=== PATIENT | female | born 1985 | race Caucasian/White ===

== ENCOUNTER 2016-08-28 10:51 | Emergency (ER) | payer OTHER ==
[~2016-08-28] VITALS: Ht 157.5 cm; Wt 60.0 kg
[~2016-08-28 10:51] MED LIST: ABIL5TAB6 PO; LEVE500 PO; SERT-129 PO
[2016-08-28 10:55] VITALS: BP 105/59; PULSE 72; RESP 20; TEMP 98.5; O2SAT 98
--- NOTE | 2016-08-28 11:15 | PD ---
HPI Chief Complaint: Seizure Time Seen by Provider: 11:15 Travel History International Travel<30 days: No Contact w/Intl Traveler<30days: No Traveled to known affect area: No History of Present Illness HPI 31-year-old female with a history of seizure disorder, bipolar disorder and anxiety presents to the emergency department for evaluation of possible seizure. The patient was at our pharmacy here in [place] and states it she began to feel lightheaded and weak as though she was "about to have a seizure." States that people around her put her in a wheelchair and brought her down to the emergency department. She states that she did not actually have a seizure. States that she has been out of her Keppra for the past 4 days because she is unable to afford it due to financial difficulties. She denies any fever, chills , nausea, vomiting, numbness or tingling, headache, chest pain, shortness of breath, abdominal pain, cough or cold symptoms. Unsure of last menstrual period. Admits to using crack cocaine last week. Denies any other drug use. Denies alcohol use. No other complaints. PFSH Past Medical History Hx Anticoagulant Therapy: No Anemia: Yes Arthritis: No Asthma: Yes Autoimmune Disease: No Blood Disorders: Yes (HX OF BLEEDING ULCER) Bipolar Disorder: Yes Anxiety: Yes (PANIC ATTACKS) Depression: Yes Heart Rhythm Problems: No Cancer: No Cardiovascular Problems: No High Cholesterol: No Chemotherapy: No Chest Pain: No Congestive Heart Failure: No COPD: No Cerebrovascular Accident: No Diabetes: No Diminished Hearing: No Endocrine: No Gastrointestinal Disorders: Yes (HX OF HYPEREMESIS ) GERD: Yes Glaucoma: No Genitourinary: Yes (KIDNEY STONES) Headaches: Yes Hepatitis: No Hiatal Hernia: No Hypertension: No Immune Disorder: No Implanted Vascular Access Dvce: Yes Kidney Stones: Yes Musculoskeletal: No Neurologic: Yes (SEIZURE DISORDER) Psychiatric: Yes (BIPOLAR, PTSD, MULTIPLE PERSONALITY DISORDER) Reproductive: No Respiratory: No Immunizations Current: Yes Migraines: Yes Myocardial Infarction: No Radiation Therapy: No Renal Failure: No Seizures: Yes Sickle Cell Disease: No Sleep Apnea: No Thyroid Disease: No Ulcer: Yes Tetanus Vaccination: < 5 Years PNEUMOCCOCAL Vaccine (Year): 3 ?: Not Menopausal: No : 11 Para: 4 Miscarriage: 7 : 0 Past Surgical History Abdominal Surgery: No AICD: No Body Medical Devices: VNS UPPER LEFT CHEST Cardiac Surgery: No Section: Yes (X 3) Ear Surgery: No Endocrine Surgery: No Eye Surgery: No Genitourinary Surgery: No Gynecologic Surgery: Yes () Hysterectomy: No Neurologic Surgery: No Oral Surgery: No Pacemaker: No Thoracic Surgery: Yes (VAGUS NERVE STIMULATOR IMPLANTATION 2000) Other Surgery: Yes (C-SECTIONS, VAGUS NERVE STIMULATOR PLACED) Social History Alcohol Use: No Tobacco Use: No Substance Use: Yes (hx of crack ) Allergies-Medications (Allergen,Severity, Reaction): Coded Allergies: Adhesives (Verified Allergy, Severe, PEELS HER SKIN, 08/28/16) Cephalosporins (Verified Allergy, Severe, A CHILD, 08/28/16) Ciprofloxacin (Verified Allergy, Severe, CANNOT BREATH, 08/28/16) Ibuprofen (Verified Allergy, Severe, STOPS BREATHING, 08/28/16) Keflex (Verified Allergy, Severe, Hives, 08/28/16) Morphine (Verified Allergy, Severe, swelling, 08/28/16) Penicillin (Verified Allergy, Severe, STOPS BREATHING, 08/28/16) Sulfa (Verified Allergy, Severe, STOPS BREATHING, 08/28/16) Vancomycin (Verified Allergy, Severe, Anaphylaxis, 08/28/16) Reported Meds & Prescriptions Reported Meds & Active Scripts Active Keppra (Levetiracetam) 500 Mg Tab 1,500 Mg PO Q12HR 30 Days Review of Systems Except as stated in HPI: all other systems reviewed are Neg Physical Exam Narrative GENERAL: Well-nourished and well-developed female patient in no acute distress. SKIN: Warm and dry. HEAD: Normocephalic and atraumatic. EYES: No injection, drainage, or hyphema noted. PERRLA. EOMI. ENT: No nasal drainage noted. Oropharynx is clear. NECK: Supple and the trachea is midline. CARDIOVASCULAR: Regular rate and rhythm. RESPIRATORY: Breath sounds are equal bilaterally with no accessory muscle use, wheezing, rhonchi, or crackles. GASTROINTESTINAL: Abdomen is soft, non-tender, and nondistended. MUSCULOSKELETAL: No obvious deformities, swelling, cyanosis, or ecchymosis is present throughout the upper and lower extremities. Patient has full range of motion without any signs of neurovascular compromise. Strength 5/5 upper and lower extremities and equal bilaterally. NEUROLOGICAL: Awake, alert, and oriented. Normal speech and gait. Cranial nerves are grossly intact. Data Data Last Documented VS Vital Signs Date Time Temp Pulse Resp B/P Pulse Ox O2 Delivery O2 Flow Rate FiO2 08/28/16 10:55 98.5 72 20 105/59 98 Orders Complete Blood Count With Diff (08/28/16 11:12) Alcohol (Ethanol) (08/28/16 11:12) Drug Screen, Random Urine (08/28/16 11:12) Electrocardiogram (08/28/16 ) Ecg Monitoring (08/28/16 11:12) Oximetry (08/28/16 11:12) Comprehensive Metabolic Panel (08/28/16 11:12) Ed Urine Pregnancytest Poc (08/28/16 11:12) Levetiracetam (Keppra) (08/28/16 11:30) Lorazepam Inj (Ativan Inj) (08/28/16 12:00) Lorazepam Inj (Ativan Inj) (08/28/16 11:49) Labs Laboratory Tests Test 08/28/16 11:15 White Blood Count 7.2 TH/MM3 Red Blood Count 4.39 MIL/MM3 Hemoglobin 14.1 GM/DL Hematocrit 42.0 % Mean Corpuscular Volume 95.6 FL Mean Corpuscular Hemoglobin 32.2 PG Mean Corpuscular Hemoglobin 33.7 % Concent Red Cell Distribution Width 12.4 % Platelet Count 195 TH/MM3 Mean Platelet Volume 9.8 FL Neutrophils (%) (Auto) 68.9 % Lymphocytes (%) (Auto) 19.1 % Monocytes (%) (Auto) 7.9 % Eosinophils (%) (Auto) 2.9 % Basophils (%) (Auto) 1.2 % Neutrophils # (Auto) 4.9 TH/MM3 Lymphocytes # (Auto) 1.4 TH/MM3 Monocytes # (Auto) 0.6 TH/MM3 Eosinophils # (Auto) 0.2 TH/MM3 Basophils # (Auto) 0.1 TH/MM3 CBC Comment DIFF FINAL Differential Comment Sodium Level 140 MEQ/L Potassium Level 4.1 MEQ/L Chloride Level 109 MEQ/L Carbon Dioxide Level 23.9 MEQ/L Anion Gap 7 MEQ/L Blood Urea Nitrogen 8 MG/DL Creatinine 0.84 MG/DL Estimat Glomerular Filtration 80 ML/MIN Rate Random Glucose 57 MG/DL Calcium Level 8.6 MG/DL Total Bilirubin 0.6 MG/DL Aspartate Amino Transf 14 U/L (AST/SGOT) Alanine Aminotransferase 21 U/L (ALT/SGPT) Alkaline Phosphatase 63 U/L Total Protein 7.2 GM/DL Albumin 3.9 GM/DL Ethyl Alcohol Level LESS THAN 3 MG/DL [facility] Medical Decision Making Medical Screen Exam Complete: Yes Emergency Medical Condition: Yes Differential Diagnosis Medication refill versus seizure disorder versus medication noncompliance Narrative Course 31-year-old female with a history of seizure disorder presents to the emergency department for evaluation of aura like symptoms of seizure. Patient is afebrile , vital signs are stable. Physical examination is unremarkable. No focal neurologic deficits. Patient has been to our facility multiple times for same complaint, she does not take her Keppra as prescribed because she reports she cannot afford the medication. Labs have been drawn and sent. She is given Keppra 1500 mg orally which is her regular dose of Keppra. CBC is unremarkable. CMP is unremarkable. ETOH less than 3. ED urine test is negative. Patient did have 1 witnessed seizure/pseudo seizure in the emergency department lasting approximately 30 seconds. She was given Ativan 2mg IM. She was not post ictal after the event. She has remained stable since then and without complaint. Her brought down her prescription for Keppra from the pharmacy so she has these medications to take at home. This is seizure disorder with medication noncompliance. Stressed the importance of taking her seizure medication as prescribed. Patient verbalizes understanding. Stable for discharge. I discussed the case with my attending physician Dr. Paul who is aware of the patients history, physical examination findings, and treatment plan. Diagnosis Primary Impression: Seizures Additional Impression: Medical non-compliance Referrals: Neurologist Patient Instructions: General Instructions, Recurrent Seizures in Adults (ED) Additional Instructions: Take your Keppra as prescribed. Follow-up with your Primary Care Physician or neurologist. Return to the ED for any acute worsening of symptoms. Med/Other Pt SpecificInfo: No Change to Meds Disposition: 01 DISCHARGE HOME Condition: Stable Tawana Weiner Aug 28, 2016 11:15
[2016-08-28] MEDS ORDERED: levETIRAcetam 500 MG TAB PO ONE (11:30)
[2016-08-28 11:36] LABS: AUTOMATED NEUTROPHIL # 4.9 TH/MM3 (1.8-7.7); BASOPHIL # 0.1 TH/MM3 (0-0.2); BASOPHIL % 1.2 % (0.0-2.0); EOSINOPHIL # 0.2 TH/MM3 (0-0.4); EOSINOPHIL % 2.9 % (0.0-4.0); HEMO FLAGS DIFF FINAL; LYMPH % 19.1 % (9.0-44.0); LYMPHOCYTE # 1.4 TH/MM3 (1.0-4.8); MEAN CELL VOLUME 95.6 FL (80.0-100.0); MEAN CORPUSCULAR HEMOGLOBIN 32.2 PG (27.0-34.0); MEAN CORPUSCULAR HGB CONC 33.7 % (32.0-36.0); MONO % 7.9 % (0.0-8.0); NEUT % 68.9 % (16.0-70.0); PLATELET COUNT 195 TH/MM3 (150-450); RED BLOOD COUNT 4.39 MIL/MM3 (4.00-5.30); RED CELL DISTRIBUTION WIDTH 12.4 % (11.6-17.2); WHITE BLOOD COUNT 7.2 TH/MM3 (4.0-11.0)
[2016-08-28] MEDS ORDERED: LORazepam 2 MG/ML VIAL ONE (11:49)
[2016-08-28 11:52] LABS: ALT (GPT) 21 U/L (10-53); ANION GAP 7 MEQ/L (5-15); AST (GOT) 14 U/L (15-37); BICARBONATE 23.9 MEQ/L (21.0-32.0); BLOOD UREA NITROGEN 8 MG/DL (7-18); CHLORIDE 109 MEQ/L (98-107); GLOMERULAR FILTRATION RATE 80 ML/MIN (>89); POTASSIUM 4.1 MEQ/L (3.5-5.1); SODIUM (NA) 140 MEQ/L (136-145)
[2016-08-28 11:54] LABS: ALKALINE PHOSPHATASE 63 U/L (45-117); TOTAL BILIRUBIN ADULT 0.6 MG/DL (0.2-1.0)
[2016-08-28] MEDS ORDERED: LORazepam 2 MG/ML VIAL IM ONE (12:00)
[2016-08-28 12:33] LABS: AMPHETAMINE, URINE NEG (NEG); BARBITURATES, URINE NEG (NEG); COCAINE, URINE POS (NEG)
[2016-08-28 12:51] VITALS: O2SAT 99
[2016-09-26] MEDS ORDERED: LEVE500 PO (17:04)
== END 2016-08-28 12:52 | disposition home or self-care (01) ==
LOC: NEPC 10:51
DX: R56.9 Unspecified convulsions (principal); J45.909 Unspecified asthma, uncomplicated; Z91.14 Patient's other noncompliance with medication regimen
CPT/HCPCS: 80053; 80307; 80320; 84703; 85025; 96372; 99284; J2060

== ENCOUNTER 2017-07-08 13:08 | Observation (INO) | payer OTHER ==
[~2017-07-08] VITALS: Ht 160 cm; Wt 57.0 kg
[2017-07-08 05:25] VITALS: PULSE 75
[~2017-07-08 13:08] MED LIST changes: -ABIL5TAB6 PO; -SERT-129 PO
[2017-07-08 13:25] VITALS: BP 98/63; PULSE 82; RESP 20; TEMP 98; O2SAT 99
--- NOTE | 2017-07-08 14:21 | PD ---
HPI Chief Complaint: Psychiatric Symptoms Time Seen by Provider: 14:03 Travel History International Travel<30 days: No Contact w/Intl Traveler<30days: No Traveled to known affect area: No History of Present Illness HPI 32-year-old female presents to the ED under [place] for evaluation of intentional overdose. Per [place] paper work the EMS called because made by [facility] employee Tim Carrasco. He advised that the patient was at home with friends who observed her purposely taking various pills including extra strength Tylenol 10-20, 500 mg of Keppra 3, cyclobenzaprine 8. The patient stated to the responding officer that "she did not want to fucking live anymore and leave her the fuck alone." She was initially combative when taken into custody. She stated that she was upset and wants to because her this past Friday from cancer. Patient admits to using meth. On arrival the patient is somnolent but arouses easily to voice. She answers questions intermittently. She is alert to person place and time. She denies any somatic complaints. She refuses to answer when asked if she is suicidal. She states "I just want to be left alone." She endorses risk of , states last menstrual period "a while ago." PFSH Past Medical History Hx Anticoagulant Therapy: No Anemia: Yes Arthritis: No Asthma: Yes Autoimmune Disease: No Blood Disorders: Yes (HX OF BLEEDING ULCER) Bipolar Disorder: Yes Anxiety: Yes (PANIC ATTACKS) Depression: Yes Heart Rhythm Problems: No Cancer: No Cardiovascular Problems: No High Cholesterol: No Chemotherapy: No Chest Pain: No Congestive Heart Failure: No COPD: No Cerebrovascular Accident: No Diabetes: No Diminished Hearing: No Endocrine: No Gastrointestinal Disorders: Yes (HX OF HYPEREMESIS ) GERD: Yes Glaucoma: No Genitourinary: Yes (KIDNEY STONES) Headaches: Yes Hepatitis: No Hiatal Hernia: No Hypertension: No Immune Disorder: No Implanted Vascular Access Dvce: Yes Kidney Stones: Yes Musculoskeletal: No Neurologic: Yes (SEIZURE DISORDER) Psychiatric: Yes (BIPOLAR, PTSD, MULTIPLE PERSONALITY DISORDER) Reproductive: No Respiratory: No Immunizations Current: Yes Migraines: Yes Myocardial Infarction: No Radiation Therapy: No Renal Failure: No Seizures: Yes Sickle Cell Disease: No Sleep Apnea: No Thyroid Disease: No Ulcer: Yes Tetanus Vaccination: < 5 Years PNEUMOCCOCAL Vaccine (Year): 3 ?: Not Menopausal: No : 11 Para: 4 Miscarriage: 7 : 0 Past Surgical History Abdominal Surgery: No AICD: No Body Medical Devices: VNS UPPER LEFT CHEST Cardiac Surgery: No Section: Yes (X 3) Ear Surgery: No Endocrine Surgery: No Eye Surgery: No Genitourinary Surgery: No Gynecologic Surgery: Yes () Hysterectomy: No Insulin Pump: No Neurologic Surgery: No Oral Surgery: No Pacemaker: No Thoracic Surgery: Yes (VAGUS NERVE STIMULATOR IMPLANTATION 2000) Other Surgery: Yes (C-SECTIONS, VAGUS NERVE STIMULATOR PLACED) Social History Alcohol Use: No Tobacco Use: No Substance Use: Yes (hx of crack ) Allergies-Medications (Allergen,Severity, Reaction): Coded Allergies: Sulfa (Sulfonamide Antibiotics) (Unverified Allergy, Severe, STOPS BREATHING, 07/08/17) adhesive (Unverified Allergy, Severe, PEELS HER SKIN, 07/08/17) cefepime (Unverified Allergy, Severe, A CHILD, 07/08/17) ceftaroline fosamil (Unverified Allergy, Severe, A CHILD, 07/08/17) cephalexin (Unverified Allergy, Severe, Hives, 07/08/17) ciprofloxacin (Unverified Allergy, Severe, CANNOT BREATH, 07/08/17) ibuprofen (Unverified Allergy, Severe, STOPS BREATHING, 07/08/17) morphine (Unverified Allergy, Severe, swelling, 07/08/17) penicillin G (Unverified Allergy, Severe, STOPS BREATHING, 07/08/17) vancomycin (Unverified Allergy, Severe, Anaphylaxis, 07/08/17) Reported Meds & Prescriptions Reported Meds & Active Scripts Active Keppra (Levetiracetam) 500 Mg Tab 1,500 Mg PO Q12HR 30 Days Review of Systems ROS Limitations: Uncooperative Except as stated in HPI: all other systems reviewed are Neg Physical Exam Exam Limitations: Uncooperative Narrative GENERAL: Well-nourished, well-developed white female in no acute distress. SKIN: Focused skin assessment warm/dry. Tattoos noted HEAD: Normocephalic. EYES: No scleral icterus. No injection or drainage. NECK: Supple, trachea midline. No JVD or lymphadenopathy. CARDIOVASCULAR: Regular rate and rhythm without murmurs, gallops, or rubs. RESPIRATORY: Breath sounds clear and equal bilaterally. No accessory muscle use. GASTROINTESTINAL: Abdomen soft, non-tender, nondistended. MUSCULOSKELETAL: No cyanosis, or edema. BACK: Nontender without obvious deformity. No CVA tenderness. Data Data Last Documented VS Vital Signs Date Time Temp Pulse Resp B/P (MAP) Pulse Ox O2 Delivery O2 Flow Rate FiO2 07/08/17 19:15 70 14 96/61 (73) 100 Room Air 07/08/17 13:25 98.0 Orders Orders Complete Blood Count With Diff (07/08/17 13:59) Comprehensive Metabolic Panel (07/08/17 13:59) Psych Screen (07/08/17 13:59) Drug Screen, Random Urine (07/08/17 13:59) Urinalysis - C+S If Indicated (07/08/17 13:59) Ed Urine Pregnancytest Poc (07/08/17 13:59) Alcohol (Ethanol) (07/08/17 13:59) Tylenol (Acetaminophen) (07/08/17 13:59) Salicylates (Aspirin) (07/08/17 13:59) Electrocardiogram (07/08/17 ) Call Poison Control (07/08/17 14:23) Levetiracetam (07/08/17 15:04) Sodium Chlor 0.9% 1000 Ml Inj (Ns 1000 M (07/08/17 15:30) Tylenol (Acetaminophen) (07/08/17 16:04) Acetylcysteine Inj (Acetadote Inj) (07/08/17 20:00) Acetylcysteine Inj (Acetadote Inj) (07/08/17 21:00) Acetylcysteine Inj (Acetadote Inj) (07/09/17 01:00) Admit Order (Ed Use Only) (07/08/17 20:05) Labs Laboratory Tests Test 07/08/17 13:59 07/08/17 14:00 07/08/17 18:15 Salicylates Level LESS THAN 1.7 MG/DL White Blood Count 5.8 TH/MM3 Red Blood Count 4.37 MIL/MM3 Hemoglobin 14.3 GM/DL Hematocrit 42.5 % Mean Corpuscular Volume 97.4 FL Mean Corpuscular Hemoglobin 32.8 PG Mean Corpuscular Hemoglobin Concent 33.7 % Red Cell Distribution Width 13.1 % Platelet Count 287 TH/MM3 Mean Platelet Volume 9.1 FL Neutrophils (%) (Auto) 53.5 % Lymphocytes (%) (Auto) 27.3 % Monocytes (%) (Auto) 13.8 % Eosinophils (%) (Auto) 4.3 % Basophils (%) (Auto) 1.1 % Neutrophils # (Auto) 3.1 TH/MM3 Lymphocytes # (Auto) 1.6 TH/MM3 Monocytes # (Auto) 0.8 TH/MM3 Eosinophils # (Auto) 0.2 TH/MM3 Basophils # (Auto) 0.1 TH/MM3 CBC Comment DIFF FINAL Differential Comment Blood Urea Nitrogen 14 MG/DL Creatinine 0.82 MG/DL Random Glucose 82 MG/DL Total Protein 7.6 GM/DL Albumin 3.8 GM/DL Calcium Level 8.4 MG/DL Alkaline Phosphatase 81 U/L Aspartate Amino Transf (AST/SGOT) 44 U/L Alanine Aminotransferase (ALT/SGPT) 43 U/L Total Bilirubin 0.5 MG/DL Sodium Level 140 MEQ/L Potassium Level 4.2 MEQ/L Chloride Level 106 MEQ/L Carbon Dioxide Level 26.8 MEQ/L Anion Gap 7 MEQ/L Estimat Glomerular Filtration Rate 81 ML/MIN Acetaminophen Level 82.4 MCG/ML Ethyl Alcohol Level 3 MG/DL MDM Medical Decision Making Medical Screen Exam Complete: Yes Emergency Medical Condition: Yes Differential Diagnosis Intentional overdose versus metabolic derangement versus Tylenol toxicity versus Adjustment disorder versus anxiety versus bipolar versus depression versus dementia versus electrolyte disorder versus malingering versus mood disorder versus ODD versus psychosis versus PTSD versus schizophrenia versus schizoaffective disorder versus substance-induced mood disorder versus other Narrative Course 32-year-old female presents to the ED under [place] act for evaluation of intentional overdose. Per [place] paper work the patient was at home with friends who observed her purposely taking various pills including extra strength Tylenol 10-20, 500 mg of Keppra 3, cyclobenzaprine 8. This occurred at approximately 12:15 PM. The patient stated to the responding officer that "she did not want to fucking live anymore and leave her the fuck alone." She was initially combative when taken into custody. She stated that she wants to because her this past Friday from cancer. Admits to using meth. On arrival the patient is somnolent but arouses easily to voice. She answers questions intermittently. She is oriented to person, place and time. She denies any somatic complaints. She refuses to answer when asked if she is suicidal. She states "I just want to be left alone." Vitals reviewed. Patient's hypotensive on presentation. Physical exam is limited due to the patient's noncooperation, but unremarkable. IV was established. Patient was administered 1 L normal saline IV. Call placed to poison control. See nurse's note for those details. ED urine test negative. CBC and CMP without concerning abnormalities. Acetaminophen level 34.4 initially. Acetaminophen level 84.2 at 1634. Acetadote ordered according to protocol. Keppra level pending. Psychiatric evaluation pending. The patient will be admitted to the medicine service for serial acetaminophen levels. I spoke with Dr. Leon who agrees to accept the patient to the medicine service. Please see medicine and psychiatric notes for disposition. Ivory Hernandes Jul 08, 2017 14:21
[2017-07-08 14:59] LABS: AUTOMATED NEUTROPHIL # 3.1 TH/MM3 (1.8-7.7); BASOPHIL # 0.1 TH/MM3 (0-0.2); BASOPHIL % 1.1 % (0.0-2.0); EOSINOPHIL # 0.2 TH/MM3 (0-0.4); EOSINOPHIL % 4.3 % (0.0-4.0); HEMATOCRIT 42.5 % (35.0-46.0); HEMO FLAGS DIFF FINAL; LYMPH % 27.3 % (9.0-44.0); LYMPHOCYTE # 1.6 TH/MM3 (1.0-4.8); MEAN CELL VOLUME 97.4 FL (80.0-100.0); MEAN CORPUSCULAR HEMOGLOBIN 32.8 PG (27.0-34.0); MEAN CORPUSCULAR HGB CONC 33.7 % (32.0-36.0); MONO % 13.8 % (0.0-8.0); NEUT % 53.5 % (16.0-70.0); PLATELET COUNT 287 TH/MM3 (150-450); RED BLOOD COUNT 4.37 MIL/MM3 (4.00-5.30); RED CELL DISTRIBUTION WIDTH 13.1 % (11.6-17.2); WHITE BLOOD COUNT 5.8 TH/MM3 (4.0-11.0)
[2017-07-08 15:16] LABS: ACETAMINOPHEN 34.4 MCG/ML (10.0-30.0); ALKALINE PHOSPHATASE 81 U/L (45-117); TOTAL BILIRUBIN ADULT 0.5 MG/DL (0.2-1.0)
[2017-07-08] MEDS ORDERED: SODIUM CHLOR 0.9% 1000 ML INJ 1,000 ML IV ONE (15:30)
[2017-07-08 17:55] LABS: ALT (GPT) 43 U/L (10-53)
[2017-07-08 18:00] LABS: ANION GAP 7 MEQ/L (5-15); AST (GOT) 44 U/L (15-37); BICARBONATE 26.8 MEQ/L (21.0-32.0); CHLORIDE 106 MEQ/L (98-107); GLOMERULAR FILTRATION RATE 81 ML/MIN (>89); SODIUM (NA) 140 MEQ/L (136-145)
[2017-07-08 18:03] LABS: ALCOHOL 3 MG/DL (0-5); BLOOD UREA NITROGEN 14 MG/DL (7-18); POTASSIUM 4.2 MEQ/L (3.5-5.1)
[2017-07-08 19:15] VITALS: BP 96/61; PULSE 70; RESP 14; O2SAT 100
[2017-07-08] MEDS ORDERED: ACETYLCYSTEINE IV ONE ×4 (20:00→21:00)
[2017-07-08] MEDS ORDERED: DEXTROSE 5% IV ONE ×4 (20:00→21:00)
[2017-07-08] MEDS ORDERED: WATER IV ONE ×2 (20:00)
[2017-07-08] MEDS ORDERED: SODIUM CHLORIDE 0.9% FLUSH 10 ML FLUSH IV FLUSH PRN (20:30)
[2017-07-08] MEDS ORDERED: NALOXONE HCL 0.4 MG/ML AMP IV PUSH PRN (20:30)
[2017-07-08] MEDS ORDERED: WATE IV ONE ×2 (21:00)
--- NOTE | 2017-07-08 21:36 | EKG ---
Date Performed: 07/08/2017 Time Performed: 14:16:40 PTAGE: 32 years EKG: Sinus rhythm WITH SHORT TX INTERVAL BORDERLINE ECG PREVIOUS TRACING : 07/08/2016 09.12 Compared to prior tracing no significant change DOCTOR: Librado Herbert Interpretating Date/Time 07/08/2017 21:36:06
[2017-07-08 22:05] VITALS: BP 108/69; PULSE 86; RESP 18; TEMP 98.2; O2SAT 100
[2017-07-08] MEDS: SODIUM CHLORIDE 0.9% FLUSH 10 ML FLUSH IV FLUSH SCH (22:37)
[2017-07-08] MEDS: SODIUM CHLOR 0.9% 1000 ML INJ 1,000 ML IV SCH (22:38)
[2017-07-08 23:46] VITALS: BP 132/64; PULSE 85; RESP 19; TEMP 98.3; O2SAT 100
[2017-07-09] VITALS (7 sets, daily range): BP systolic 88–107; BP diastolic 54–62; PULSE 67–88; RESP 16–17; TEMP 98–98.2; O2SAT 98–99
--- NOTE | 2017-07-09 00:09 | HHI.HP ---
[facility] Service [facility] Primary Care Physician No Primary Care Physician Admission Diagnosis intentional Tylenol overdose Diagnoses: Travel History International Travel<30 Days: No Contact w/Intl Traveler <30 Da: No Traveled to Known Affected Are: No History of Present Illness 32-year-old female brought to the emergency department under [place] act for evaluation of intentional overdose. EMS was called by [facility] employee Tim Carrasco who was informed that the patient was at home with friends who observed her purposely taking various pills including approximately 10-20 extra strength Tylenol, 500 mg Keppra 3 and Flexeril 8. During our interview , the patient is uncooperative and hostile. She repeatedly tells me to "leave her alone." She responds that she wanted to because her just . She will not answer when I asked her what medication she took at home earlier today. She does admit to having a seizure disorder and states she gets her Keppra from [facility], she does not have a neurologist. She also states that her last seizure was last night, unwitnessed. The patient has had many hospitalizations for seizures often after running out of medication. The patient also admits to smoking meth, last use 2 days ago. Review of Systems Unable to obtain as patient was uncooperative Past Family Social History Past Medical History Seizure disorder (Remainder obtained from medical records) PTSD Anxiety Asthma Past Surgical History Vital nerve stimulator Reported Medications Reported Meds & Active Scripts Active Keppra (Levetiracetam) 500 Mg Tab 1,500 Mg PO Q12HR 30 Days Allergies: Coded Allergies: Sulfa (Sulfonamide Antibiotics) (Unverified Allergy, Severe, STOPS BREATHING, 07/08/17) adhesive (Unverified Allergy, Severe, PEELS HER SKIN, 07/08/17) cefepime (Unverified Allergy, Severe, A CHILD, 07/08/17) ceftaroline fosamil (Unverified Allergy, Severe, A CHILD, 07/08/17) cephalexin (Unverified Allergy, Severe, Hives, 07/08/17) ciprofloxacin (Unverified Allergy, Severe, CANNOT BREATH, 07/08/17) ibuprofen (Unverified Allergy, Severe, STOPS BREATHING, 07/08/17) morphine (Unverified Allergy, Severe, swelling, 07/08/17) penicillin G (Unverified Allergy, Severe, STOPS BREATHING, 07/08/17) vancomycin (Unverified Allergy, Severe, Anaphylaxis, 07/08/17) Family History Patient refused to answer Social History Denies tobacco and alcohol. Admits to smoking methamphetamine as recently as 2 days ago. Physical Exam Vital Signs Vital Signs Date Time Temp Pulse Resp B/P (MAP) Pulse Ox O2 Delivery O2 Flow Rate FiO2 07/08/17 23:46 98.3 85 19 132/64 (86) 100 07/08/17 22:05 98.2 86 18 108/69 (82) 100 07/08/17 21:45 07/08/17 19:15 70 14 96/61 (73) 100 Room Air 07/08/17 13:25 98.0 82 20 98/63 (75) 99 Physical Exam GENERAL: female lying in SKIN: No rashes, ecchymoses or lesions. Cool and dry. HEAD: Atraumatic. Normocephalic. No temporal or scalp tenderness. EYES: Pupils equal round and reactive. Extraocular motions intact. No scleral icterus. No injection or drainage. ENT: Nose without bleeding, purulent drainage or septal hematoma. Airway patent. Poor dentition. NECK: Trachea midline. No JVD or lymphadenopathy. Supple, nontender, no meningeal signs. CARDIOVASCULAR: Regular rate and rhythm without murmurs, gallops, or rubs. RESPIRATORY: Clear to auscultation. Breath sounds equal bilaterally. No wheezes , rales, or rhonchi. GASTROINTESTINAL: Abdomen soft, non-tender, nondistended. No hepato-splenomegaly , or palpable masses. No guarding. MUSCULOSKELETAL: Extremities without clubbing, cyanosis, or edema. No joint tenderness, effusion, or edema noted. NEUROLOGICAL: Awake and alert. Cranial nerves II through XII intact. Motor and sensory grossly within normal limits. Normal speech. Laboratory Laboratory Tests Test 07/08/17 13:59 07/08/17 14:00 07/08/17 18:15 Salicylates Level LESS THAN 1.7 White Blood Count 5.8 Red Blood Count 4.37 Hemoglobin 14.3 Hematocrit 42.5 Mean Corpuscular Volume 97.4 Mean Corpuscular Hemoglobin 32.8 Mean Corpuscular Hemoglobin Concent 33.7 Red Cell Distribution Width 13.1 Platelet Count 287 Mean Platelet Volume 9.1 Neutrophils (%) (Auto) 53.5 Lymphocytes (%) (Auto) 27.3 Monocytes (%) (Auto) 13.8 Eosinophils (%) (Auto) 4.3 Basophils (%) (Auto) 1.1 Neutrophils # (Auto) 3.1 Lymphocytes # (Auto) 1.6 Monocytes # (Auto) 0.8 Eosinophils # (Auto) 0.2 Basophils # (Auto) 0.1 CBC Comment DIFF FINAL Differential Comment Blood Urea Nitrogen 14 Creatinine 0.82 Random Glucose 82 Total Protein 7.6 Albumin 3.8 Calcium Level 8.4 Alkaline Phosphatase 81 Aspartate Amino Transf (AST/SGOT) 44 Alanine Aminotransferase (ALT/SGPT) 43 Total Bilirubin 0.5 Sodium Level 140 Potassium Level 4.2 Chloride Level 106 Carbon Dioxide Level 26.8 Anion Gap 7 Estimat Glomerular Filtration Rate 81 Acetaminophen Level 82.4 Ethyl Alcohol Level 3 Result Diagram: 07/08/17 1400 07/08/17 1400 Caprini VTE Risk Assessment Caprini VTE Risk Assessment: No/Low Risk (score <= 1) Caprini Risk Assessment Model Point Value = 1 Point Value = 2 Point Value = 3 Point Value = 5 Age 41-60 Minor surgery BMI > 25 kg/m2 Swollen legs Varicose veins or History of unexplained or recurrent spontaneous Oral contraceptives or hormone replacement Sepsis (< 1 month) Serious lung disease, including pneumonia (< 1 month) Abnormal pulmonary function Acute myocardial infarction Congestive heart failure (< 1 month) History of inflammatory bowel disease Medical patient at bed rest Age 61-74 Arthroscopic surgery Major open surgery (> 45 min) Laparoscopic surgery (> 45 min) Malignancy Confined to bed (> 72 hours) Immobilizing plaster cast Central venous access Age >= 75 History of VTE Family history of VTE Factor V Leiden Prothrombin [id number] Lupus anticoagulant Anticardiolipin antibodies Elevated serum homocysteine Heparin-induced thrombocytopenia Other congenital or acquired thrombophilia Stroke (< 1 month) Elective arthroplasty Hip, pelvis, or leg fracture Acute spinal cord injury (< 1 month) Prophylaxis Regimen Total Risk Factor Score Risk Level Prophylaxis Regimen 0-1 Low Early ambulation 2 Moderate Order ONE of the following: *Sequential Compression Device (SCD) *Heparin 5000 units SQ BID 3-4 Higher Order ONE of the following medications: *Heparin 5000 units SQ TID *Enoxaparin/Lovenox 40 mg SQ daily (WT < 150 kg, CrCl > 30 mL/min) *Enoxaparin/Lovenox 30 mg SQ daily (WT < 150 kg, CrCl > 10-29 mL/min) *Enoxaparin/Lovenox 30 mg SQ BID (WT < 150 kg, CrCl > 30 mL/min) AND/OR *Sequential Compression Device (SCD) 5 or more Highest Order ONE of the following medications: *Heparin 5000 units SQ TID (Preferred with Epidurals) *Enoxaparin/Lovenox 40 mg SQ daily (WT < 150 kg, CrCl > 30 mL/min) *Enoxaparin/Lovenox 30 mg SQ daily (WT < 150 kg, CrCl > 10-29 mL/min) *Enoxaparin/Lovenox 30 mg SQ BID (WT < 150 kg, CrCl > 30 mL/min) AND *Sequential Compression Device (SCD) Assessment and Plan Assessment and Plan 32-year-old female with a past medical history significant for seizure disorder presents under [employer] act for intentional overdose. 1. Intentional overdose Patient took unspecified amount of Tylenol, Flexeril and Keppra Acetaminophen level 82.4, poison control contacted and N-acetylcysteine initiated per protocol Trend LFTs Keppra level pending Patient under [place] act [place] Psychiatry consulted, appreciate recommendations 2. Seizure disorder Patient reports seizure last night EEG pending Neurology consulted, appreciate assistance Seizure precautions Ativan prn seizures FEN Regular diet NS at 100 cc/hr Monitor electrolytes Miguelina Leon MD Jul 09, 2017 00:09
[2017-07-09] MEDS ORDERED: LORazepam 2 MG/ML VIAL IV PUSH PRN (00:30)
[2017-07-09] MEDS ORDERED: WATE IV ONE ×2 (01:00)
[2017-07-09] MEDS ORDERED: DEXTROSE 5% IV ONE ×2 (01:00)
[2017-07-09] MEDS ORDERED: ACETYLCYSTEINE IV ONE ×2 (01:00)
[2017-07-09] MEDS: SODIUM CHLOR 0.9% 1000 ML INJ 1,000 ML IV SCH ×2 (06:25→13:54)
[2017-07-09 06:56] LABS: BACTERIA, URINE RARE /hpf; BLOOD, URINE NEG (NEG); COMMENT (UR) CULT NOT INDICATED; CULTURE IF INDICATED CULT NOT INDICATED; GLUCOSE,URINE NEG (NEG); KETONE, URINE 40 mg/dL (NEG); MUCUS URINE FEW /lpf (OCC); NITRITE,URINE NEG (NEG); PH, URINE 6.5 (5.0-8.5); SQUAMOUS EPITHELIAL CELL URINE 23 /hpf (0-5); URINE COLOR YELLOW (YELLW/STRAW)
[2017-07-09] MEDS: SODIUM CHLORIDE 0.9% FLUSH 10 ML FLUSH IV FLUSH SCH (09:00)
[2017-07-09] MEDS ORDERED: ONDANSETRON HCL 4 MG/2 ML VIAL IVP PRN (09:30)
[2017-07-09] MEDS ORDERED: SENNOSIDES 8.6 MG TAB PO PRN (09:30)
[2017-07-09] MEDS ORDERED: LACTULOSE SYRUP 20 GM/30 ML CUP PO PRN (09:30)
[2017-07-09] MEDS ORDERED: BISACODYL 10 MG SUPP RECTAL PRN (09:30)
[2017-07-09] MEDS ORDERED: MAGNESIUM HYDROXIDE SUSP 30 ML CUP PO PRN (09:30)
[2017-07-09] MEDS ORDERED: NALOXONE HCL 0.4 MG/ML AMP IV PUSH PRN (09:30)
--- NOTE | 2017-07-09 10:38 | PD.PSY.CON ---
Provisional Diagnosis Admission Date Jul 08, 2017 at 20:07 [place] I. Adjustment disorder with depressed mood vs major depressive disorder History of Present Illness Service Psychiatry Consult Requested By ER team Reason for Consult Suicidal attempt by overdose Primary Care Physician No Primary Care Physician HPI The patient is a 32-year-old woman, with no psychiatric history, he doesn't have any documented psychiatric history here at [facility], medical history of seizures, who was brought to the emergency department under [place] act for evaluation of intentional overdose. EMS was called by [facility] employee Tim Carrasco who was informed that the patient was at home with friends who observed her purposely taking various pills including approximately 10-20 extra strength Tylenol, 500 mg Keppra 3 and Flexeril 8. During our interview, the patient is uncooperative and hostile. She repeatedly tells me to "leave her alone." She responds that she wanted to because her just . She will not answer when I asked her what medication she took at home earlier today. She does admit to having a seizure disorder and states she gets her Keppra from [facility], she does not have a neurologist. She also states that her last seizure was last night, unwitnessed. The patient has had many hospitalizations for seizures often after running out of medication. The patient also admits to smoking meth, last use 2 days ago. In spite of multiple redirections, the patient does not want to cooperate for the psychiatric evaluation. There is not telephone numbers of family or friend listed in the electronic record. Review of Systems ROS Limitations: Uncooperative Past Family Social History Coded Allergies: Sulfa (Sulfonamide Antibiotics) (Unverified Allergy, Severe, STOPS BREATHING, 07/08/17) adhesive (Unverified Allergy, Severe, PEELS HER SKIN, 07/08/17) cefepime (Unverified Allergy, Severe, A CHILD, 07/08/17) ceftaroline fosamil (Unverified Allergy, Severe, A CHILD, 07/08/17) cephalexin (Unverified Allergy, Severe, Hives, 07/08/17) ciprofloxacin (Unverified Allergy, Severe, CANNOT BREATH, 07/08/17) ibuprofen (Unverified Allergy, Severe, STOPS BREATHING, 07/08/17) morphine (Unverified Allergy, Severe, swelling, 07/08/17) penicillin G (Unverified Allergy, Severe, STOPS BREATHING, 07/08/17) vancomycin (Unverified Allergy, Severe, Anaphylaxis, 07/08/17) Active Scripts Levetiracetam (Keppra) 500 Mg Tab, 1500 MG PO Q12HR for seizure for 30 Days, TAB 1 Refill Prov:Jessy Negro MD 09/26/16 Current Medications Medications (Trade) Dose Ordered Sig/Markus Route Start Time Stop Time Status Last Admin Acetylcysteine 5700 mg/Dextrose 1,028.5 ml @ 62.5 mls/ hr ONCE ONCE IV 07/09/17 01:00 07/09/17 17:27 07/09/17 01:00 Sodium Chloride 1,000 ml @ 100 mls/hr Q10H IV 07/08/17 20:26 07/09/17 06:25 (NS Flush) 2 ml UNSCH PRN IV FLUSH 07/08/17 20:30 (NS Flush) 2 ml BID IV FLUSH 07/08/17 21:00 07/08/17 22:37 (Ativan Inj) 2 mg Q10M PRN IV PUSH 07/09/17 00:30 (Zofran Inj) 4 mg Q6H PRN IVP 07/09/17 09:30 (Narcan Inj) 0.4 mg UNSCH PRN IV PUSH 07/09/17 09:30 (Ninoska-Colace) 1 tab BID PO 07/09/17 21:00 (Milk Of Magnesia Liq) 30 ml Q12H PRN PO 07/09/17 09:30 (Senokot) 17.2 mg Q12H PRN PO 07/09/17 09:30 (Dulcolax Supp) 10 mg DAILY PRN RECTAL 07/09/17 09:30 (Lactulose Liq) 30 ml DAILY PRN PO 07/09/17 09:30 Physical Exam Vital Signs Vital Signs Date Time Temp Pulse Resp B/P (MAP) Pulse Ox O2 Delivery O2 Flow Rate FiO2 07/09/17 09:46 97/56 (70) 99 07/09/17 08:14 98.0 79 16 07/08/17 19:15 Room Air Lab Results Test 07/08/17 13:59 07/08/17 14:00 07/09/17 06:00 07/09/17 06:15 Salicylates Level LESS THAN 1.7 MG/DL White Blood Count 5.8 TH/MM3 Red Blood Count 4.37 MIL/MM3 Hemoglobin 14.3 GM/DL Hematocrit 42.5 % Mean Corpuscular Volume 97.4 FL Mean Corpuscular Hemoglobin 32.8 PG Mean Corpuscular Hemoglobin Concent 33.7 % Red Cell Distribution Width 13.1 % Platelet Count 287 TH/MM3 Mean Platelet Volume 9.1 FL Neutrophils (%) (Auto) 53.5 % Lymphocytes (%) (Auto) 27.3 % Monocytes (%) (Auto) 13.8 % Eosinophils (%) (Auto) 4.3 % Basophils (%) (Auto) 1.1 % Neutrophils # (Auto) 3.1 TH/MM3 Lymphocytes # (Auto) 1.6 TH/MM3 Monocytes # (Auto) 0.8 TH/MM3 Eosinophils # (Auto) 0.2 TH/MM3 Basophils # (Auto) 0.1 TH/MM3 CBC Comment DIFF FINAL Differential Comment Blood Urea Nitrogen 14 MG/DL Creatinine 0.82 MG/DL Random Glucose 82 MG/DL Total Protein 7.6 GM/DL Albumin 3.8 GM/DL Calcium Level 8.4 MG/DL Alkaline Phosphatase 81 U/L Aspartate Amino Transf (AST/SGOT) 44 U/L Alanine Aminotransferase (ALT/SGPT) 43 U/L Total Bilirubin 0.5 MG/DL Sodium Level 140 MEQ/L Potassium Level 4.2 MEQ/L Chloride Level 106 MEQ/L Carbon Dioxide Level 26.8 MEQ/L Anion Gap 7 MEQ/L Estimat Glomerular Filtration Rate 81 ML/MIN Acetaminophen Level 82.4 MCG/ML Ethyl Alcohol Level 3 MG/DL Urine Color YELLOW Urine Turbidity HAZY Urine pH 6.5 Urine Specific [place] 1.038 Urine Protein 30 mg/dL Urine Glucose (UA) NEG mg/dL Urine Ketones 40 mg/dL Urine Occult Blood NEG Urine Nitrite NEG Urine Bilirubin NEG Urine Urobilinogen LESS THAN 2.0 MG/DL Urine Leukocyte Esterase MOD Urine RBC 4 /hpf Urine WBC 7 /hpf Urine Squamous Epithelial Cells 23 /hpf Urine Bacteria RARE /hpf Urine Mucus FEW /lpf Microscopic Urinalysis Comment CULT NOT INDICATED Urine Opiates Screen NEG Urine Barbiturates Screen NEG Urine Amphetamines Screen POS Urine Benzodiazepines Screen NEG Urine Cocaine Screen NEG Urine Cannabinoids Screen NEG Mental Status Examination Appearance: Appropriate, Disheveled Consciousness: Alert Mental Status Exam Remarks Mental status is limited due to the lack of cooperation Assessment & Plan Problem List: (1) Adjustment disorder with mixed anxiety and depressed mood ICD Codes: F43.23 - Adjustment disorder with mixed anxiety and depressed mood Assessment & Plan: On psychiatric evaluation the patient is oppositional, resistant, non-cooperative, refuses to answer my questions. He has been persistently verbally hostile and abuses with nurses and staff. Patient has a documented suicide attempt by overdosing with multiple psychotropics. No collateral information available at this moment. Patient is definitely a threat to herself and seems to be very dysregulated and needs psychiatric admission for stabilization and safety. Transfer to psychiatry once medically appropriate. Continue sitter in the ER for safety. Assessment & Plan Estimated LOS: days Gavino Castillo MD Jul 09, 2017 10:38
--- NOTE | 2017-07-09 10:59 | MB ---
cc: JEOVANY LIVE M.D. DATE OF CONSULTATION 07/09/2017 REASON FOR CONSULTATION This is a 32-year-old woman seen in neurological consultation in regards to altered mentation and seizure. HISTORY OF PRESENT ILLNESS The patient was brought to the hospital under a [place] ACT with a history of intentional overdose taking different pills including Tylenol, Keppra, cyclobenzaprine. I noted that the ER evaluation also observed the foul language that I observed. Apparently there is a use of some meth and the drug screen was positive for amphetamines. She may have a vagus nerve stimulator apparently implanted in 2000. There is a history of seizures. History of multiple allergies, see H&P. PHYSICAL EXAM Exam was very limited. She had her eyes closed, responded occasionally to simple questions such as her age. She started following commands gripping and then suddenly said the following "my is dying, live me fucking alone" and essentially wanted me to leave her alone. She turned in bed and continued to maintain the eyes closed and covered herself completely. At that point, I left her alone. LABORATORY DATA Laboratory data was noted. The patient had a CT brain last evening which was normal. CBC was unremarkable. Chemistry, slightly elevated AST and slightly low calcium otherwise normal. Toxicology positive for acetaminophen and amphetamines. ASSESSMENT Overdose. History of seizures apparently on Keppra and apparently has VNS. Neurologic josé, I tried to follow her and when she is more cooperative to see if she will participate in the exam. Otherwise, medical and psychiatric care. Thank you for asking us to assist in her care. MD SADIA Johnston/CHRISTIAN /10:44 AM /10:53 AM
[2017-07-09 14:23] LABS: AUTOMATED NEUTROPHIL # 2.6 TH/MM3 (1.8-7.7); BASOPHIL # 0.1 TH/MM3 (0-0.2); EOSINOPHIL # 0.2 TH/MM3 (0-0.4); EOSINOPHIL % 4.1 % (0.0-4.0); HEMATOCRIT 36.7 % (35.0-46.0); HEMO FLAGS DIFF FINAL; LYMPH % 31.8 % (9.0-44.0); LYMPHOCYTE # 1.6 TH/MM3 (1.0-4.8); MEAN CELL VOLUME 96.9 FL (80.0-100.0); MEAN CORPUSCULAR HEMOGLOBIN 32.7 PG (27.0-34.0); MEAN CORPUSCULAR HGB CONC 33.7 % (32.0-36.0); MONO % 12.3 % (0.0-8.0); NEUT % 50.8 % (16.0-70.0); PLATELET COUNT 240 TH/MM3 (150-450); RED BLOOD COUNT 3.79 MIL/MM3 (4.00-5.30); RED CELL DISTRIBUTION WIDTH 12.7 % (11.6-17.2); WHITE BLOOD COUNT 5.2 TH/MM3 (4.0-11.0)
[2017-07-09 14:56] LABS: ACETAMINOPHEN LESS THAN 2.0 MCG/ML (10.0-30.0); ALKALINE PHOSPHATASE 61 U/L (45-117); ALT (GPT) 33 U/L (10-53); ANION GAP 9 MEQ/L (5-15); AST (GOT) 32 U/L (15-37); BETA HCG QUANT LESS THAN 1 MIU/ML (0-5); BICARBONATE 23.5 MEQ/L (21.0-32.0); BLOOD UREA NITROGEN 7 MG/DL (7-18); CHLORIDE 110 MEQ/L (98-107); GLOMERULAR FILTRATION RATE 138 ML/MIN (>89); POTASSIUM 4.7 MEQ/L (3.5-5.1); SODIUM (NA) 142 MEQ/L (136-145); TOTAL BILIRUBIN ADULT 0.3 MG/DL (0.2-1.0)
--- NOTE | 2017-07-09 16:22 | HHI.DCPOC ---
Discharge Care Plan Diagnosis: (1) Adjustment disorder with mixed anxiety and depressed mood Goals to Promote Your Health * To prevent worsening of your condition and complications * To maintain your health at the optimal level Directions to Meet Your Goals Take your medications as prescribed Follow your dietary instruction Follow activity as directed Keep your appointments as scheduled Take your immunizations and boosters as scheduled If your symptoms worsen call your PCP, if no PCP go to Urgent Care Center or Emergency Room Smoking is Dangerous to Your Health. Avoid second hand smoke Call the 24-hour hour crisis hotline for domestic abuse at Celina Menjivar Jul 09, 2017 16:22
[2017-07-09] MEDS ORDERED: LEVE500 PO (16:24)
--- NOTE | 2017-07-09 16:24 | HHI.PR ---
Subjective Remarks Follow-up Tylenol level. Patient has no complaints denies nausea and abdominal pain. Discussed with RN Objective Vitals Vital Signs Date Time Temp Pulse Resp B/P (MAP) Pulse Ox O2 Delivery O2 Flow Rate FiO2 07/09/17 09:46 97/56 (70) 99 07/09/17 08:14 98.0 79 16 88/54 (65) 98 07/09/17 04:20 98.2 67 17 107/62 (77) 99 07/08/17 23:46 98.3 85 19 132/64 (86) 100 07/08/17 22:05 98.2 86 18 108/69 (82) 100 07/08/17 21:45 07/08/17 19:15 70 14 96/61 (73) 100 Room Air I/O 07/08/17 07/08/17 07/08/17 07/09/17 07/09/17 07/09/17 07:00 15:00 23:00 07:00 15:00 23:00 Intake Total 1242.775 ml Balance 1242.775 ml Intake IV Total 1242.775 ml # Voids 1 Result Diagram: 07/09/17 1405 07/09/17 1405 Objective Remarks GENERAL: female lying in SKIN: No rashes, ecchymoses or lesions. Cool and dry. CARDIOVASCULAR: Regular rate and rhythm without murmurs, gallops, or rubs. RESPIRATORY: Clear to auscultation. Breath sounds equal bilaterally. No wheezes , rales, or rhonchi. GASTROINTESTINAL: Abdomen soft, non-tender, nondistended. No guarding. MUSCULOSKELETAL: Extremities without clubbing, cyanosis, or edema. No joint tenderness, effusion, or edema noted. NEUROLOGICAL: Awake and alert. Cranial nerves II through XII intact. Motor and sensory grossly within normal limits. Normal speech. Procedures None A/P Problem List: (1) Drug overdose ICD Code: T50.901A - Poisoning by unspecified drugs, medicaments and biological substances, accidental (unintentional), initial encounter Assessment and Plan 32-year-old female with a past medical history significant for seizure disorder presents under [place] act for intentional overdose. 1. Intentional overdose Patient took unspecified amount of Tylenol, Flexeril and Keppra Acetaminophen level 82.4, poison control contacted and N-acetylcysteine initiated per protocol Trend LFTs. Repeat LFTs in the normal limits and Tylenol level negligible, discontinue Mucomyst Keppra level pending Patient under [place] act [place] Psychiatry consulted, appreciate recommendations. Patient will be transferred to psychiatry for as she is medically cleared and stable 2. Seizure disorder Patient reports seizure last night EEG pending Neurology consulted, appreciate assistance Seizure precautions Ativan prn seizures FEN Regular diet NS at 100 cc/hr, will discontinue tolerating diet Monitor electrolytes Discharge Planning Discharge patient to psychiatry Condition on discharge: Improved Regular Diet as tolerated Ad Ifeoma activity no driving Rx written: May resume Keppra in the morning pending review of Keppra level Follow-up with primary care physician Neftali Hamm MD Jul 09, 2017 16:23
[2017-07-09] MEDS ORDERED: DOCUSATE SODIUM 50 MG/SENNA 8.6 MG TAB PO SCH (21:00)
== END 2017-07-09 18:06 ==
LOC: NEPC 13:08 → NEDA 20:07 → NEPGCP 22:01
PROVIDERS: ADMIT Internal Medicine; ATTEND Internal Medicine
DX: T39.1X2A Poisoning by 4-Aminophenol derivatives, intentional self-harm, initial encounter (principal); T48.1X2A Poisoning by skeletal muscle relaxants [neuromuscular blocking agents], intentional self-harm, initial encounter; T42.6X2A Poisoning by other antiepileptic and sedative-hypnotic drugs, intentional self-harm, initial encounter; R40.0 Somnolence; I95.9 Hypotension, unspecified; G40.909 Epilepsy, unspecified, not intractable, without status epilepticus; F15.90 Other stimulant use, unspecified, uncomplicated; J45.909 Unspecified asthma, uncomplicated; F43.10 Post-traumatic stress disorder, unspecified; F43.23 Adjustment disorder with mixed anxiety and depressed mood; F31.9 Bipolar disorder, unspecified; F44.81 Dissociative identity disorder; Z79.899 Other long term (current) drug therapy
CPT/HCPCS: 80053; 80177; 80307; 81001; 84702; 84703; 85025; 93005; 96361; 96365; 96366; 99285; G0378; J0132; J7030; J7060; J7070; 85610

== ENCOUNTER 2017-07-09 16:21 | Inpatient (IN) | payer OTHER ==
[~2017-07-09] VITALS: Ht 160 cm; Wt 59.8 kg
[2017-07-09 16:15] VITALS: BP 103/66; PULSE 86; RESP 18; TEMP 98.5; O2SAT 98
[2017-07-09] MEDS ORDERED: LEVE500 PO (16:24)
[2017-07-10 08:42] LABS: ANION GAP 7 MEQ/L (5-15); BICARBONATE 28.3 MEQ/L (21.0-32.0); BLOOD UREA NITROGEN 8 MG/DL (7-18); CHLORIDE 106 MEQ/L (98-107); GLOMERULAR FILTRATION RATE 106 ML/MIN (>89); SODIUM (NA) 141 MEQ/L (136-145)
[2017-07-10 08:43] LABS: HDL CHOLESTEROL 59.5 MG/DL (40.0-60.0); LDL CHOLESTEROL 52 MG/DL (0-99)
[2017-07-10] MEDS ORDERED: ALUMINUM/MAGNESIUM/SIMETH 30 ML CUP PO PRN (10:00)
[2017-07-10] MEDS ORDERED: hydrOXYzine HCL 50 MG TAB PO PRN (10:00)
[2017-07-10] MEDS ORDERED: MAGNESIUM HYDROXIDE SUSP 30 ML CUP PO PRN (10:00)
--- NOTE | 2017-07-10 10:19 | HHI.HP ---
Provisional Diagnosis Admission Date Jul 09, 2017 at 18:05 [place] I. 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 Express and informed consent means consent voluntarily given in writing, by a competent person, after sufficient explanation and disclosure of the subject matter involved to enable the person to make a knowing and willful decision without any element of force, fraud, deceit, duress, or other form of constraint or coercion. This person is 18 years of age or older, is not now known to be incompetent to consent to treatment with a guardian advocate, and does not have a health care surrogate or proxy currently making medical treatment decisions. I have found this person to be one of the following: [] Competent to provide express and informed consent, as defined above, for voluntary admission to this facility and is competent to provide express and informed consent for treatment. He/she has the consistent capacity to make well reasoned, willful, and knowing decisions concerning his or her medical or mental health treatment. The person fully and consistently understands the purpose of the admission for examination/placement and is fully capable of personally exercising all rights assured [place] [] Incompetent to provide express and informed consent to voluntary admission, and this is incompetent to provide express and informed consent to treatment. The person must be transferred to involuntary status and a petition for a guardian advocate filed with the Circuit Court. [xxx] Refusing to provide express and informed consent to voluntary admission but is competent to provide express and informed consent for treatment. The person must be discharged or transferred to involuntary status. Form shall be completed within 24 hours of a person's arrival at the receiving facility and filed in the clinical record of each person: 1. Admitted on a voluntary basis 2. Permitted to provide express and informed consent to his/her own treatment 3. Allowed to transfer from involuntary to voluntary status 4. Prior to permitting a person to consent to his or her own treatment after having been previously found incompetent to consent to treatment. History of Present Illness Capacity: Lacks Capacity (patient lacks capacity to sign for admission, patient has capacity sign of medication) Psych Chief Complaint: suicide attempt with multiple drug overdose HPI Patient is a 32-year-old white female initially admitted to the hospital on under [place] act by the [place] [employer] dated 07/08/17 at 1224 hrs. it document reviewed essentially stating called in by [facility] employee Tim smith [phone] he advised Nahed was at home with friends who observed her purposely taking various pills to include approximately 10-20 pills extra strength Tylenol, 500 mg Flexeril, approximately 3-500 mg cyclobenzaprine approximately 8 pills. Upon arrival I make contact with Rachna and asked her why she took many pills, Rachna responded angrily because she did not want to fucking live anymore and to leave her the fuck alone. Mandeep friend was on the scene and did observe her to take said pill. Rachna became slightly combative when she was being taken into custody but eventually stopped. Care is upset and wants to because her this past Friday from cancer. Rachna is also a meth user but it is unknown when the last time she used area and patient was initially admitted to the medical service under visit [phone] due to the toxic Tylenol levels that occurred with the overdose. Her urine toxicology was also positive for amphetamines. Patient medically cleared on the medical floor on the 07/09. Patient was seen on 07/[address] Gavino Barlow patient was quite oppositional angry irritable quite profane and assaultive towards him. However he felt she continued to meet criteria recommended transfer to this unit when medically clear. Patient was medically cleared transferred to this unit. Patient seen by me today with RN and medical student rosales. Patient's EMR reviewed patient' s had multiple contacts with this hospital since 2008. She has had multiple positive urine toxicology his for cocaine and cocaine metabolites. Though the most recent urine toxicology was only positive for amphetamines. Patient was seen in her room angry irritable quite profane using the "F" word multiple times when asked about that use she said I have freedom of speech. She reiterated her grief at the of her within the past week or so. She acknowledged being with friends who are using methamphetamine and a "smoke- filled" room. In attempting to discuss her past substance abuse issues he became angry or and more oppositional. When asked about a continues suicidality she refused to answer working at me again. Patient is states she's been [place] acted multiple times in the past and the only reason why I'm doing this today so that I can make money off of her. Patient was unable contract for safety. Patient was also seen by neurology on her medical admission. Her behavior was the same with Dr. clementsa was unable to do a full examination of her oppositionality. Denies any event at this time patient does meet criteria for further stay under the [place] act I'll do first opinion request second opinion. I feel she does have capacity to site of her medications. Continue her Keppra 1500 mg twice a day. We will order Her blood level for tomorrow morning. Patient states that she is plan to [facility] [place] act and that some clinician at their facilities diagnosed with bipolar disorder and posttraumatic stress disorder multiple personality disorder. I question the veracity of those diagnoses considering the strong substance abuse she has documented our EMR. Review of Systems Constitutional: DENIES: Diaphoretic episodes, Fatigue, Fever, Weight gain, Weight loss, Chills, Dizziness, Change in appetite, Night Sweats Endocrine: DENIES: Abnorml menstrual pattern, Heat/cold intolerance, Polydipsia , Polyuria, Polyphagia Eyes: DENIES: Blurred vision, Diplopia, Eye inflammation, Eye pain, Vision loss , Photosensitivity, Double Vision Ears, nose, mouth, throat: DENIES: Tinnitus, Hearing loss, Vertigo, Nasal discharge, Oral lesions, Throat pain, Hoarseness, Ear Pain, Running Nose, Epistaxis, Sinus Pain, Toothache, Odynophagia Respiratory: DENIES: Apneas, Cough, Snoring, Wheezing, Hemoptysis, Sputum production, Shortness of breath Cardiovascular: DENIES: Chest pain, Palpitations, Syncope, Dyspnea on Exertion , PND, Lower Extremity Edema, Orthopnea, Claudication Gastrointestinal: DENIES: Abdominal pain, Black stools, Bloody stools, Constipation, Diarrhea, Nausea, Vomiting, Difficulty Swallowing, Anorexia Genitourinary: DENIES: Abnormal vaginal bleeding, Dysmenorrhea, Dyspareunia, Sexual dysfunction, Urinary frequency, Urinary incontinence, Urgency, Hematuria , Dysuria, Nocturia, Vaginal discharge Musculoskeletal: DENIES: Joint pain, Muscle aches, Stiffness, Joint Swelling, Back pain, Neck pain Integumentary: DENIES: Abnormal pigmentation, Pruritus, Rash, Nail changes, Breast masses, Breast skin changes, Nipple discharge Hematologic/lymphatic: DENIES: Bruising, Lymphadenopathy Immunologic/allergic: DENIES: Eczema, Urticaria Neurologic: DENIES: Abnormal gait, Headache, Localized weakness, Paresthesias, Seizures, Speech Problems, Tremor, Poor Balance Psychiatric: COMPLAINS OF: Depression, Agitation, Homicidal Ideation Past Psych History Psychological trauma history Patient willing to discuss any details Violence risk - others (6 mos) Patient unwilling to discuss Violence risk - self (6 mos) Patient suicide attempt 07/08 Substance Abuse History Drugs/Alcohol past 12 months Patient active methamphetamine abuser strong history of cocaine abuse Past Family Social History Coded Allergies: Sulfa (Sulfonamide Antibiotics) (Unverified Allergy, Severe, STOPS BREATHING, 07/08/17) adhesive (Unverified Allergy, Severe, PEELS HER SKIN, 07/08/17) cefepime (Unverified Allergy, Severe, A CHILD, 07/08/17) ceftaroline fosamil (Unverified Allergy, Severe, A CHILD, 07/08/17) cephalexin (Unverified Allergy, Severe, Hives, 07/08/17) ciprofloxacin (Unverified Allergy, Severe, CANNOT BREATH, 07/08/17) ibuprofen (Unverified Allergy, Severe, STOPS BREATHING, 07/08/17) morphine (Unverified Allergy, Severe, swelling, 07/08/17) penicillin G (Unverified Allergy, Severe, STOPS BREATHING, 07/08/17) vancomycin (Unverified Allergy, Severe, Anaphylaxis, 07/08/17) Active Scripts Levetiracetam (Keppra) 500 Mg Tab, 1500 MG PO Q12HR for seizure for 30 Days, # 60 TAB 1 Refill Prov:Celina Menjivar 07/09/17 Current Medications Medications (Trade) Dose Ordered Sig/Markus Route Start Time Stop Time Status Last Admin (Benadryl) 50 mg HS PRN PO 07/10/17 10:00 UNV (Tylenol) 650 mg Q4H PRN PO 07/10/17 10:00 UNV (Milk Of Magnesia Liq) 30 ml DAILY PRN PO 07/10/17 10:00 UNV (Mag-Al Plus Susp Liq) 30 ml Q6H PRN PO 07/10/17 10:00 UNV (Habitrol 21 Mg Patch.24 Hr) 1 patch DAILY T-DERMAL 07/11/17 09:00 UNV (Atarax) 50 mg Q6H PRN PO 07/10/17 10:00 UNV (Keppra) 1,500 mg Q12HR PO 07/10/17 10:00 UNV Family Psych History Patient unwilling to discuss Social History It appears patient's about a week ago Patient's Strengths (min. 2) Patient verbal irritable [facility] Physical Exam Patient seen screened in ED exam reviewed and agreed with. Patient pacing in the room angry agitated quite irritable and profane. Though she is in no acute distress. No respiratory distress. No complaints of abdominal pain. Patient moving all 4 extremities without difficulty. No abnormal motor movements noted Vital Signs Vital Signs Date Time Temp Pulse Resp B/P (MAP) Pulse Ox O2 Delivery O2 Flow Rate FiO2 07/09/17 16:15 98.5 86 18 103/66 (78) 98 Lab Results Test 07/10/17 07:21 Blood Urea Nitrogen 8 MG/DL Creatinine 0.65 MG/DL Random Glucose 75 MG/DL Calcium Level 8.4 MG/DL Sodium Level 141 MEQ/L Potassium Level 4.0 MEQ/L Chloride Level 106 MEQ/L Carbon Dioxide Level 28.3 MEQ/L Anion Gap 7 MEQ/L Estimat Glomerular Filtration Rate 106 ML/MIN Triglycerides Level 80 MG/DL Cholesterol Level 127 MG/DL LDL Cholesterol 52 MG/DL HDL Cholesterol 59.5 MG/DL Cholesterol/HDL Ratio 2.13 RATIO Mental Status Examination Appearance: Disheveled Consciousness: Alert, Vigilant Orientation: Person, Place, Date/Time, Situation Motor Activity: Normal gait Speech: Pressured, Rapid Language: Adequate, Other (markedly profane) Fund of Knowledge: Adequate Attention and Concentration: Other (fair) Memory: Unremarkable Mood: Angry, Sad, Oppositional, Irritable Affect: Other (increase range and intensity) Thought Process & Associations: Intact Thought Content: Racing thoughts, Preoccupations Hallucination Type: None (denies) Delusion Type: None Suicidal Ideation: Yes (suicide attempt 07/08 though denies today) Suicidal Plan: Yes Suicidal Intention: Yes Homicidal Ideation: No Homicidal Plan: No Homicidal Intention: No Insight: Poor Judgment: Poor Assessment & Plan Problem List: (1) Adjustment disorder with mixed disturbance of emotions and conduct ICD Codes: F43.25 - Adjustment disorder with mixed disturbance of emotions and conduct (2) Amphetamine abuse ICD Codes: F15.10 - Other stimulant abuse, uncomplicated (3) History of cocaine abuse ICD Codes: Z87.898 - Personal history of other specified conditions Assessment & Plan Estimated LOS: days patient remains somewhat depressed markedly paranoid angry vitreolysis and profane. We will continue patient on her seizure medication. We'll continue the hospitalist consultation and the neurology consultation. Will refrain from any psychotropics at the present time perhaps patient needs some time to detox from the amphetamines, and to gain some self-control Discharge Planning Probable return to her home with outpatient treatment. Patient states she has been seen at [facility] of the past Request HC Surrog/Guard Advoc?: Jass Aguero MD Jul 10, 2017 10:19
[2017-07-10] MEDS: levETIRAcetam 500 MG TAB PO SCH ×2 (11:15→21:22)
[2017-07-10 11:51] LABS: HEMOGLOBIN A1a 0.7 %; HEMOGLOBIN A1b 0.7 %; HEMOGLOBIN Ao 86.8 %; HEMOGLOBIN F 0.9 %; HEMOGLOBIN LA1C 1.7 %; HEMOGLOBIN P3 3.2 %
--- NOTE | 2017-07-10 13:47 | MB ---
cc: LAUREN HARRINGTON M.D. DATE OF CONSULTATION: 07/10/2017 DATE OF : 1985 REASON FOR CONSULTATION History of epilepsy, has a [employer]. HISTORY OF PRESENT ILLNESS This is a 32-year-old woman admitted on 07/08, San Acted by the police, called in by [facility] and the patient was taking purposely various medications, Tylenol, Flexeril. She has a history of epilepsy. She is on 1500 mg b.i.d. of Keppra. She has a vagus nerve stimulator implanted in 2012, I believe at [facility]. Her urine tox screen was positive for amphetamines. Apparently was very hostile and belligerent and cursing at the doctors yesterday using profane words. She was grief stricken in the chart because of the passing of her . ALLERGIES She has multiple allergies, please refer to MR. PHYSICAL EXAMINATION GENERAL: She is a thin 32-year-old woman, sleepy, arousable, lying in bed in no distress. VITAL SIGNS: Temperature is 98, pulse 88, respiratory rate 16, blood pressure 96/55, sating at 98%. NEURO: She arouses, she is fluent. Pupils are reactive. Face symmetrical. Tongue midline. Motor josé no drift or leg lag. Gait is withheld. LABORATORY DATA Her labs are reviewed. Her CBC this morning white count 5.2, hemoglobin 12.4, platelets of 240,000. Coag panel has been cancelled, it is not done. Chemistries today are intact except for a calcium of 8.4. Lipids are unremarkable. Beta-hCG is less than 1. Urine is hazy, moderate leukocyte esterase, culture is pending. Tox screen was positive for amphetamines, Keppra level 12.8. Apparently she is compliant. Acetaminophen level is 82.4. IMPRESSION 32-year-old woman with a history of epilepsy, currently on Keppra. I will continue the current dose, level is stable at this point in time, there is no known toxicity with this drug unless she does try to abuse it but looking back at her chemistries liver and kidney function have been fine. Currently she will need to follow up at [facility] for the vagus nerve, I am not sure if she has a magnet with her but from a neurologic perspective no other testing indicated. Can be discharged when cleared by psychiatry. MD WYATT Burnham /1:24 PM /1:32 PM
--- NOTE | 2017-07-10 14:07 | PD.CONS ---
HPI Service [facility] Consult Requested By Dr. Garcia Reason for Consult Medical management Primary Care Physician Jessy Negro MD Diagnoses: (1) Drug overdose, intentional (2) Seizures History of Present Illness Written by Rafael Duran, acting as scribe for Dr. Tovar on 07/10/17 at 11:50. 32-year-old female who presented to the ED on 07/08 under [place] act after she was observed at home taking various pills by mouth with concerns for intentional overdose. She reportedly took 10-20 Extra strength Tylenols, 500 mg Keppra 3 tabs and Flexeril 8 tabs per ED documentation. She was treated in the observation unit with IV Mucomyst and labs followed per poison control. She was discharged to medical psychiatry for ongoing treatment of mental health. Patient was seen shortly after using bathroom and ambulates back to bed without difficulties, she does not appear in any acute distress. An attempt is made to interview her regarding how she is feeling but patient states she "just want to be left alone, I already spoke to the psychiatrist". When asked if she is having fever, chills, nausea, vomiting, or abdominal pain she states "no, no, no ". She gets back in bed covering herself with her blankets. She does not seem interested in continuing to communicate. Review of Systems Except as stated in HPI: all other systems reviewed are Neg Past Family Social History Allergies: Coded Allergies: Sulfa (Sulfonamide Antibiotics) (Unverified Allergy, Severe, STOPS BREATHING, 07/08/17) adhesive (Unverified Allergy, Severe, PEELS HER SKIN, 07/08/17) cefepime (Unverified Allergy, Severe, A CHILD, 07/08/17) ceftaroline fosamil (Unverified Allergy, Severe, A CHILD, 07/08/17) cephalexin (Unverified Allergy, Severe, Hives, 07/08/17) ciprofloxacin (Unverified Allergy, Severe, CANNOT BREATH, 07/08/17) ibuprofen (Unverified Allergy, Severe, STOPS BREATHING, 07/08/17) morphine (Unverified Allergy, Severe, swelling, 07/08/17) penicillin G (Unverified Allergy, Severe, STOPS BREATHING, 07/08/17) vancomycin (Unverified Allergy, Severe, Anaphylaxis, 07/08/17) Past Medical History (Medical history is obtained from review of medical records as patient was not answering questions) Seizure disorder PTSD Anxiety Asthma Past Surgical History (Past surgical history obtained from medical record as patient was not answering questions) Vagus nerve stimulator Reported Medications Reported Meds & Active Scripts Active Keppra (Levetiracetam) 500 Mg Tab 1,500 Mg PO Q12HR 30 Days Active Ordered Medications Inpatient Medications Acetaminophen (Tylenol) 650 mg Q4H PRN PO Pain 1-5 or Temp >101F; Start at 10:00 Al Hydrox/Mg Hydrox/Simethicone (Mag-Al Plus Susp Liq) 30 ml Q6H PRN PO DYSPEPSIA; Start 07/10/17 at 10:00 Diphenhydramine HCl (Benadryl) 50 mg HS PRN PO INSOMNIA; Start 07/10/17 at 10: 00 Hydroxyzine HCl (Atarax) 50 mg Q6H PRN PO ANXIETY; Start 07/10/17 at 10:00 Levetriacetam (Keppra) 1,500 mg Q12HR PO Last administered on 07/10/17t 11:15 ; Start 07/10/17 at 10:45 Magnesium Hydroxide (Milk Of Magnesia Liq) 30 ml DAILY PRN PO CONSTIPATION; Start 07/10/17 at 10:00 Miscellaneous Information 1 HS T-DERMAL ; Start 07/11/17 at 21:00 Nicotine (Habitrol 21 Mg Patch.24 Hr) 1 patch DAILY T-DERMAL ; Start 07/11/17 at 09:00 Family History Unable to obtain, patient not answering questions Social History Review of medical records does show she smoked methamphetamines two days prior being San acted on 07/08 Physical Exam Vital Signs Vital Signs Date Time Temp Pulse Resp B/P (MAP) Pulse Ox O2 Delivery O2 Flow Rate FiO2 07/09/17 16:15 98.5 86 18 103/66 (78) 98 Physical Exam GENERAL: This is a well-nourished, well-developed patient, in no apparent distress. SKIN: unable to assess as patient refused. No visible facial skin rashes or erythema noted. HEAD: Atraumatic. Normocephalic. EYES: No drainage from eyes noted. ENT: Airway patent speaking with no difficulties. NECK: Trachea midline. CARDIOVASCULAR: Unable to assess. RESPIRATORY: Unable to assess GASTROINTESTINAL: Unable to assess. MUSCULOSKELETAL: Unable to assess. Patient is seen ambulating in room with no visible difficulties or need for assistance. NEUROLOGICAL: Awake and alert. Normal speech. Exam limited due to patient refusal. Laboratory Laboratory Tests Test 07/10/17 07:21 Blood Urea Nitrogen 8 Creatinine 0.65 Random Glucose 75 Calcium Level 8.4 Sodium Level 141 Potassium Level 4.0 Chloride Level 106 Carbon Dioxide Level 28.3 Anion Gap 7 Estimat Glomerular Filtration Rate 106 Hemoglobin A1c 5.1 Triglycerides Level 80 Cholesterol Level 127 LDL Cholesterol 52 HDL Cholesterol 59.5 Cholesterol/HDL Ratio 2.13 Result Diagram: 07/10/17 0721 Assessment and Plan Problem List: (1) Seizures ICD Code: R56.9 - Seizures Status: Acute (2) Drug overdose ICD Code: T50.901A - Poisoning by unspecified drugs, medicaments and biological substances, accidental (unintentional), initial encounter Status: Acute Assessment and Plan 32-year-old female brought to ED under [place] act after she was observed taking various pills by mouth with the purpose of overdose. ED documentation showing patient reportedly ingested Extra strength Tylenol 10-20, Keppra 500mg 3 tabs, and Flexeril 8 tabs. Poison control was contacted and protocol initiated for IV Mucomyst. Patient completed Mucomyst course acetaminophen levels on 07/09 were less than 2.0 and LFT's back to normal. Patient was discharged to medical psychiatry services. Intentional overdose -Completed IV Mucomyst course, acetaminophen levels <2.0, LFT's back to normal as well on 07/09 - BMP today unremarkable with the exception of calcium of 8.4. Possibly secondary to poor nutrition. Seizure disorder -On Keppra 1500mg BID - Keppra level 12.8, neurology has also been consulted to follow patient. - Recommendations from neurology appreciated. DVT ppx ambulation This note was transcribed by ESEQUIEL Saxena. I, Dr. Mayra Tovar personally performed the history, physical exam, and medical decision making; and confirmed the accuracy of the information in the transcribed note. Authenticated by Dr. Mayra Tovar on 07/10/17 at 11:50. Problem Qualifiers (1) Drug overdose, intentional: Qualified Codes: T50.902D - Poisoning by unspecified drugs, medicaments and biological substances, intentional self-harm, subsequent encounter (2) Drug overdose: Qualified Codes: T50.902D - Poisoning by unspecified drugs, medicaments and biological substances, intentional self-harm, subsequent encounter Rafael Duran Jul 10, 2017 14:07 Mayra Tovar MD Jul 10, 2017 15:23
[2017-07-10 16:46] VITALS: BP 96/46; PULSE 78; RESP 18; TEMP 98.6; O2SAT 78
[2017-07-11 05:40] VITALS: BP 100/55; PULSE 68; RESP 16; TEMP 97.9; O2SAT 97
[2017-07-11] MEDS: NICOTINE 21 MG/24 HR PATCH T-DERMAL SCH (09:00)
[2017-07-11] MEDS: levETIRAcetam 500 MG TAB PO SCH ×2 (09:13→21:19)
--- NOTE | 2017-07-11 10:38 | PD.PSY.CON ---
Provisional Diagnosis Admission Date Jul 09, 2017 at 18:05 [place] I. 1. Adjustment disorder with mixed disturbance of emotion and conduct 2. Amphetamine abuse 3. History cocaine abuse [place] II. 1. Cluster B personality traits History of Present Illness Service Psychiatry Consult Requested By Dr. Garcia Reason for Consult Second opinion for involuntary psychiatric hospitalization Primary Care Physician Jessy Negro MD HPI From Dr. Garcia's H&P: Patient is a 32-year-old white female initially admitted to the hospital on under [place] act by the [place] [employer] dated 07/08/17 at 1224 hrs. it document reviewed essentially stating called in by [employer] employee Tim smith [phone] he advised Nahed was at home with friends who observed her purposely taking various pills to include approximately 10-20 pills extra strength Tylenol, 500 mg Flexeril, approximately 3-500 mg cyclobenzaprine approximately 8 pills. Upon arrival I make contact with Rachna and asked her why she took many pills, Rachna responded angrily because she did not want to fucking live anymore and to leave her the fuck alone. Mandeep friend was on the scene and did observe her to take said pill. Rachna became slightly combative when she was being taken into custody but eventually stopped. Care is upset and wants to because her this past Friday from cancer. Racnha is also a meth user but it is unknown when the last time she used area and patient was initially admitted to the medical service under visit [phone] due to the toxic Tylenol levels that occurred with the overdose. Her urine toxicology was also positive for amphetamines. Patient medically cleared on the medical floor on the 07/09. Patient was seen on 07/[address] Gavino Barlow patient was quite oppositional angry irritable quite profane and assaultive towards him. However he felt she continued to meet criteria recommended transfer to this unit when medically clear. Patient was medically cleared transferred to this unit. Patient seen by me today with RN and medical student rosales. Patient's EMR reviewed patient' s had multiple contacts with this hospital since 2008. She has had multiple positive urine toxicology his for cocaine and cocaine metabolites. Though the most recent urine toxicology was only positive for amphetamines. Patient was seen in her room angry irritable quite profane using the "F" word multiple times when asked about that use she said I have freedom of speech. She reiterated her grief at the of her within the past week or so. She acknowledged being with friends who are using methamphetamine and a "smoke- filled" room. In attempting to discuss her past substance abuse issues he became angry or and more oppositional. When asked about a continues suicidality she refused to answer working at me again. Patient is states she's been [place] acted multiple times in the past and the only reason why I'm doing this today so that I can make money off of her. Patient was unable contract for safety. Patient was also seen by neurology on her medical admission. Her behavior was the same with . starra was unable to do a full examination of her oppositionality. Denies any event at this time patient does meet criteria for further stay under the [place] act I'll do first opinion request second opinion. I feel she does have capacity to site of her medications. Continue her Keppra 1500 mg twice a day. We will order Her blood level for tomorrow morning. Patient states that she is plan to [facility] act and that some clinician at their facilities diagnosed with bipolar disorder and posttraumatic stress disorder multiple personality disorder. I question the veracity of those diagnoses considering the strong substance abuse she has documented our EMR. On my examination today: Patient seen and examined with nurse. Chart reviewed. Case discussed with nursing staff. On my exam, patient presents as oppositional and irritable. She admits to recent overdose on Tylenol, Keppra and other agents and says that she was "trying to kill myself because my just ." She currently describes the overdose as "stupid" and denies SI at this time. However, she remains extremely dysphoric, and it seems likely that she is not reliable to contract for safety. She exhibits prominent cluster B personality traits. She is unable to tolerate extended interview and says "if you guys are gonna keep me here, just keep me here!" She then shuts down and refuses further interview. Before doing so, I was able to obtain from patient that she has a history of BPAD, PTSD and anxiety, follows at [facility] and has a history of previous suicide attempts. I am unable to obtain any other past psychiatric, family, chemical dependency or social history from this patient as she is uncooperative with interview. Review of Systems ROS Limitations: Uncooperative Other Limited ROS. Patient uncooperative. Past Family Social History Coded Allergies: Sulfa (Sulfonamide Antibiotics) (Unverified Allergy, Severe, STOPS BREATHING, 07/08/17) adhesive (Unverified Allergy, Severe, PEELS HER SKIN, 07/08/17) cefepime (Unverified Allergy, Severe, A CHILD, 07/08/17) ceftaroline fosamil (Unverified Allergy, Severe, A CHILD, 07/08/17) cephalexin (Unverified Allergy, Severe, Hives, 07/08/17) ciprofloxacin (Unverified Allergy, Severe, CANNOT BREATH, 07/08/17) ibuprofen (Unverified Allergy, Severe, STOPS BREATHING, 07/08/17) morphine (Unverified Allergy, Severe, swelling, 07/08/17) penicillin G (Unverified Allergy, Severe, STOPS BREATHING, 07/08/17) vancomycin (Unverified Allergy, Severe, Anaphylaxis, 07/08/17) Past Medical History See electronic medical record Active Scripts Levetiracetam (Keppra) 500 Mg Tab, 1500 MG PO Q12HR for seizure for 30 Days, # 60 TAB 1 Refill Prov:Celina Menjivar 07/09/17 Current Medications Medications (Trade) Dose Ordered Sig/Markus Route Start Time Stop Time Status Last Admin (Benadryl) 50 mg HS PRN PO 07/10/17 10:00 (Tylenol) 650 mg Q4H PRN PO 07/10/17 10:00 (Milk Of Magnesia Liq) 30 ml DAILY PRN PO 07/10/17 10:00 (Mag-Al Plus Susp Liq) 30 ml Q6H PRN PO 07/10/17 10:00 (Habitrol 21 Mg Patch.24 Hr) 1 patch DAILY T-DERMAL 07/11/17 09:00 (Atarax) 50 mg Q6H PRN PO 07/10/17 10:00 (Keppra) 1,500 mg Q12HR PO 07/10/17 10:45 07/11/17 09:13 Miscellaneous Information 1 HS T-DERMAL 07/11/17 21:00 Family Psych History See above Social History See above Patient's Strengths (min. 2) In a monitored setting. Verbally fluent. Physical Exam Physical examination completed by hospitalist coding consultant. On my examination today, the patient appears to be in no acute physical distress. No motor abnormalities noted. Labs and vitals reviewed: Vital Signs Vital Signs Date Time Temp Pulse Resp B/P (MAP) Pulse Ox O2 Delivery O2 Flow Rate FiO2 07/11/17 05:40 97.9 68 16 100/55 (70) 97 Lab Results Item Value Date Time Sodium Level 141 MEQ/L 07/10/17720 Potassium Level 4.0 MEQ/L 07/10/17720 Chloride Level 106 MEQ/L 07/10/17720 Carbon Dioxide Level 28.3 MEQ/L 07/10/17720 Blood Urea Nitrogen 8 MG/DL 07/10/17720 Creatinine 0.65 MG/DL 07/10/17720 Estimat Glomerular Filtration Rate 106 ML/MIN 07/10/17720 Random Glucose 75 MG/DL 07/10/17720 Mental Status Examination Appearance: Disheveled Consciousness: Alert, Vigilant Orientation: Person, Place (at least) Motor Activity: Other (motor exam as above) Speech: Unremarkable Language: Adequate, Other (markedly profane) Fund of Knowledge: Adequate Attention and Concentration: Other (fair) Memory: Unremarkable (grossly intact on clinical exam) Mood: Angry, Oppositional, Irritable Affect: Other (restricted and dysphoric) Thought Process & Associations: Intact Thought Content: Appropriate Hallucination Type: None Delusion Type: None Suicidal Ideation: No (unreliable to contract for safety) Suicidal Plan: Yes Suicidal Intention: Yes Homicidal Ideation: No Insight: Poor Judgment: Poor Assessment & Plan Problem List: (1) Adjustment disorder with mixed disturbance of emotions and conduct ICD Codes: F43.25 - Adjustment disorder with mixed disturbance of emotions and conduct (2) Amphetamine abuse ICD Codes: F15.10 - Other stimulant abuse, uncomplicated (3) History of cocaine abuse ICD Codes: Z87.898 - Personal history of other specified conditions Assessment & Plan Given the circumstances of the patient's presentation here and her presentation on my examination today, I concur with Dr. Garcia that the patient meets criteria for involuntary psychiatric hospitalization under the [place] act. I have completed the second opinion paperwork. Further care as per Dr. Garcia. Thank you very much for this consultation. Signing off. Request HC Surrog/Guard Advoc?: No Black Balbuena MD Jul 11, 2017 10:38
--- NOTE | 2017-07-11 12:16 | HHI.PYPN ---
Subjective Chief Complaint: suicide attempt with multiple drug overdose Remarks Patient seen today in her room with medical student Gabriel, patient in bed, she is quiet refusing to look at me giving very brief irritating answers. She still has an attitude of defiance though her affect is showing decreased range of motion intensity. She was not profane with me today. She minimizes her behaviors. Though she does denies suicidality of voices today. However feel there is still a potential high risk for patient acting out. Is my opinion will need further observation assessment to verify the patient statements as to her resolution of her suicidality. Review of Systems Except as stated in HPI: all other systems reviewed are Neg Mental Status Examination Appearance: Disheveled Consciousness: Alert, Vigilant Orientation: Person, Place, Date/Time, Situation Motor Activity: Normal gait Speech: Pressured, Rapid Language: Adequate, Other (markedly profane) Fund of Knowledge: Adequate Attention and Concentration: Other (fair) Memory: Unremarkable Mood: Angry, Sad, Oppositional, Irritable Affect: Other (increase range and intensity) Thought Process & Associations: Intact Thought Content: Racing thoughts, Preoccupations Hallucination Type: None (denies) Delusion Type: None Suicidal Ideation: Yes (suicide attempt 07/08 though denies today) Suicidal Plan: Yes Suicidal Intention: Yes Homicidal Ideation: No Homicidal Plan: No Homicidal Intention: No Insight: Poor Judgment: Poor Results Labs Test 07/11/17 06:42 Vitals/IOs Vital Signs Date Time Temp Pulse Resp B/P (MAP) Pulse Ox O2 Delivery O2 Flow Rate FiO2 07/11/17 05:40 97.9 68 16 100/55 (70) 97 Assessment & Plan Problem List: (1) Adjustment disorder with mixed disturbance of emotions and conduct ICD Codes: F43.25 - Adjustment disorder with mixed disturbance of emotions and conduct (2) Amphetamine abuse ICD Codes: F15.10 - Other stimulant abuse, uncomplicated (3) History of cocaine abuse ICD Codes: Z87.898 - Personal history of other specified conditions Assessment & Plan Estimated LOS: days patient continues angry irritable and somewhat oppositional. For now continue observation and assessment. Refrain from any psychotropics at this time. We'll continue her Keppra Justification for Cont. Inpt. If this time patient will decompensate and placed in a lower level of care Discharge Planning Probable return to her home with outpatient follow-up perhaps rosa maria Rodriges Request HC Surrog/Guard Advoc?: No Jass Garcia MD Jul 11, 2017 12:16
--- NOTE | 2017-07-11 14:20 | PD.TTN ---
Patient Problems 1. Discharge planning 2. Medication compliance 3. Knowledge deficit 4. Lack of coping skills Progress Toward Goals Provider Present: Dr. Gianni Garcia Provider Input: 07/11/17 patient will remain for observation over weekend for observation due to her severity of lability and her history Nurse(s) Input: 07/11/17 has been refusing to cooperate Psychiatric Counselors Present: Basia Mayen LCSW Psych Therapist Input: 07/11/17 patient has been reluctant to cooperate and is very aggitated and easily upset and complaints steadily Group Spec/RT/OT/MALONEY Present: Kirsten Love, DEANGELO Group Spec/RT/OT/MALONEY Input: patient is discharged focused but participated in some groups , rude and uncooperative Basia Mayen LCSW Jul 11, 2017 14:19
[2017-07-11 17:27] VITALS: BP 111/64; PULSE 91; RESP 17; TEMP 98.3; O2SAT 98
[2017-07-11] MEDS: REMOVE OLD NICODERM (NICOTINE) PATCH T-DERMAL SCH (21:00)
[2017-07-12 05:52] VITALS: BP 105/60; PULSE 69; RESP 16; TEMP 98; O2SAT 98
[2017-07-12] MEDS: NICOTINE 21 MG/24 HR PATCH T-DERMAL SCH (09:00)
[2017-07-12] MEDS: levETIRAcetam 500 MG TAB PO SCH ×2 (09:47→20:39)
[2017-07-12] MEDS ORDERED: INFLUENZA VIRUS VACCINE (QUADRIVALENT) 0.5 ML SYR IM ONE (10:00)
[2017-07-12] MEDS: ACETAMINOPHEN 325 MG TAB PO PRN ×2 (12:09→21:50)
[2017-07-12] MEDS: BENZOCAINE 7.5% ORAL GEL 9.4 GM TUBE OROPHARYNG PRN ×2 (15:28→20:39)
--- NOTE | 2017-07-12 16:19 | HHI.PR ---
Subjective Remarks Patient in pain complaints of tooth pain says she had dental work previously the wisdom tooth in the left side is cracked and needs to come out. No fever or chills. No nausea or vomiting. Says she is not able to eat because of pain. Says she will get a seizure if her pain is not controlled. Objective Vitals Vital Signs Date Time Temp Pulse Resp B/P (MAP) Pulse Ox O2 Delivery O2 Flow Rate FiO2 07/12/17 13:20 14 07/12/17 05:52 98.0 69 16 105/60 (75) 98 07/11/17 17:27 98.3 91 17 111/64 (80) 98 Result Diagram: 07/10/17 0721 Objective Remarks GENERAL: 32 yo F in the chair complaining of tooth ache. SKIN: Warm and dry. HEAD: Atraumatic. Normocephalic. EYES: Pupils equal and round. No scleral icterus. No injection or drainage. ENT: No nasal bleeding or discharge. Mucous membranes pink and moist. No visible inflammation, of left back wisdom tooth however patient has pain on palpation. NECK: Trachea midline. No JVD. CARDIOVASCULAR: Regular rate and rhythm. RESPIRATORY: No accessory muscle use. Clear to auscultation. Breath sounds equal bilaterally. GASTROINTESTINAL: Abdomen soft, non-tender, nondistended. Hepatic and splenic margins not palpable. MUSCULOSKELETAL: Extremities without clubbing, cyanosis, or edema. No obvious deformities. NEUROLOGICAL: Awake and alert. No obvious cranial nerve deficits. Motor grossly within normal limits. Five out of 5 muscle strength in the arms and legs. Normal speech. PSYCHIATRIC: Appropriate mood and affect; insight and judgment normal. A/P Problem List: (1) Seizures ICD Code: R56.9 - Seizures Status: Acute (2) Drug overdose ICD Code: T50.901A - Poisoning by unspecified drugs, medicaments and biological substances, accidental (unintentional), initial encounter Status: Acute Assessment and Plan 32-year-old female brought to ED under [place] act after she was observed taking various pills by mouth with the purpose of overdose. ED documentation showing patient reportedly ingested Extra strength Tylenol 10-20, Keppra 500mg 3 tabs, and Flexeril 8 tabs. Poison control was contacted and protocol initiated for IV Mucomyst. Patient completed Mucomyst course acetaminophen levels on 11/15 were less than 2.0 and LFT's back to normal. Patient was discharged to medical psychiatry services. Intentional overdose -Completed IV Mucomyst course, acetaminophen levels <2.0, LFT's back to normal as well on 07/09 - BMP today unremarkable with the exception of calcium of 8.4. Possibly secondary to poor nutrition. Seizure disorder -On Keppra 1500mg BID - Keppra level 12.8, neurology has also been consulted to follow patient. - Recommendations from neurology appreciated. [place] toothache left side: tylenol as need, added orajel, percocet as need for breakthrough pain bid. Monitor closely VS. DVT ppx ambulation Problem Qualifiers (1) Drug overdose: Qualified Codes: T50.902D - Poisoning by unspecified drugs, medicaments and biological substances, intentional self-harm, subsequent encounter Mayra Tovar MD Jul 12, 2017 16:19
--- NOTE | 2017-07-12 16:56 | HHI.PYPN ---
Subjective Chief Complaint: suicide attempt with multiple drug overdose Remarks Pt seen and discussed with staff. She has been irritable and oppositional on unit. She is struggling with grief over 's recent passing. RN states that pt told her several times today that if she didn't get pain medicine for toothache then she would have a seizure. She refused to speak with senior patient account representative yesterday but today did comply today.During interview expressed anger that pain medicine ordered by senior patient account representative was not ready. RN explained to pt that medicine had been ordered and was being prepared by pharmacy and would be brought to pt as soon as available. Pt told MD that she was about to have a seizure and launched self out of chair to the floor, but carefully avoided hitting her head. Pt writhed and flailed on the floor and moaned "i'm in pain" for approximately 30 seconds,, but did not appear to display convulsive motor activity. She did not loose consciousness. There was no was no post-ictal confusion, incontinence, mouth injury or other injury. Lorazepam was drawn up but not administered as activity resolved. Pt stated to MD and RN that she has stress seizures and this particular seizure was brought on from tooth pain. She reports that one week ago she had another stress seizure after she found out her . Pt reports that she has been taking Keppra since in hospital but states, "my " when asked if she'd been compliant prior to hospitalization. Neuro consult was reviewed and pt apparently has a VNS for epilepsy implanted in 2012.She reports that she previously took sertraline for depression several years ago, found it helpful with symptoms and tolerated it well without side effects, but stopped medication after she became . She would like to restart medication. Mental Status Examination Appearance: Disheveled Consciousness: Alert, Vigilant Orientation: Person, Place (at least) Motor Activity: Other (motor exam as above) Speech: Unremarkable Language: Adequate, Other (markedly profane) Fund of Knowledge: Adequate Attention and Concentration: Other (fair) Memory: Unremarkable (grossly intact on clinical exam) Mood: Angry, Oppositional, Irritable Affect: Other (restricted and dysphoric) Thought Process & Associations: Intact Thought Content: Appropriate Hallucination Type: None Delusion Type: None Suicidal Ideation: No (unreliable to contract for safety) Suicidal Plan: Yes Suicidal Intention: Yes Homicidal Ideation: No Insight: Poor Judgment: Poor Results Vitals/IOs Vital Signs Date Time Temp Pulse Resp B/P (MAP) Pulse Ox O2 Delivery O2 Flow Rate FiO2 07/12/17 13:20 14 07/12/17 05:52 98.0 69 105/60 (75) 98 Assessment & Plan Problem List: (1) Adjustment disorder with mixed disturbance of emotions and conduct ICD Codes: F43.25 - Adjustment disorder with mixed disturbance of emotions and conduct (2) Amphetamine abuse ICD Codes: F15.10 - Other stimulant abuse, uncomplicated (3) History of cocaine abuse ICD Codes: Z87.898 - Personal history of other specified conditions Assessment & Plan Pt's seizure activity is most consistent with stress seizure or pseudo-seizure, exacerbated by stress of grief and pain. Pain medication protocol has been written by hospitalist. Given that pt also does have documented epilepsy, will write order for prn lorazepam for seizure lasting greater than 2 min. Continue current medication regimen. Plan to start sertraline for depression. Estimated LOS: days Justification for Cont. Inpt. impairments in safety Request HC Surrog/Guard Advoc?: Caitlin Lombardo MD Jul 12, 2017 16:56
[2017-07-12 17:12] VITALS: BP 112/67; PULSE 17; RESP 17; TEMP 98; O2SAT 99
[2017-07-12] MEDS ORDERED: LORazepam 2 MG/ML VIAL ONE (17:15)
[2017-07-12] MEDS ORDERED: LORazepam 2 MG/ML VIAL IM PRN (17:30)
[2017-07-12] MEDS: oxyCODONE/ACETAMINOPHEN 5 MG/325 MG TAB PO PRN (17:35)
[2017-07-12] MEDS: REMOVE OLD NICODERM (NICOTINE) PATCH T-DERMAL SCH (20:39)
[2017-07-12] MEDS: diphenhydrAMINE HCL 50 MG CAP PO PRN (21:50)
[2017-07-13 05:40] VITALS: BP 100/58; PULSE 74; RESP 16; TEMP 98.2; O2SAT 97
[2017-07-13] MEDS: BENZOCAINE 7.5% ORAL GEL 9.4 GM TUBE OROPHARYNG PRN ×3 (06:03→20:48)
[2017-07-13] MEDS: oxyCODONE/ACETAMINOPHEN 5 MG/325 MG TAB PO PRN (06:04)
--- NOTE | 2017-07-13 08:36 | HHI.PR ---
Subjective Remarks Toothache improved, says she is able to chew food. No fever or chills; No n/v/d/ c. Denies chest pain or sob. Objective Vitals Vital Signs Date Time Temp Pulse Resp B/P (MAP) Pulse Ox O2 Delivery O2 Flow Rate FiO2 07/13/17 07:22 14 07/13/17 05:40 98.2 74 16 100/58 (72) 97 07/12/17 17:12 98.0 112/67 (82) 99 07/12/17 13:20 14 Result Diagram: 07/10/17 0721 Objective Remarks GENERAL: 32 yo F in the chair complaining of tooth ache. SKIN: Warm and dry. HEAD: Atraumatic. Normocephalic. EYES: Pupils equal and round. No scleral icterus. No injection or drainage. ENT: No nasal bleeding or discharge. Mucous membranes pink and moist. No visible inflammation, of left back wisdom tooth however patient has pain on palpation. NECK: Trachea midline. No JVD. CARDIOVASCULAR: Regular rate and rhythm. RESPIRATORY: No accessory muscle use. Clear to auscultation. Breath sounds equal bilaterally. GASTROINTESTINAL: Abdomen soft, non-tender, nondistended. Hepatic and splenic margins not palpable. MUSCULOSKELETAL: Extremities without clubbing, cyanosis, or edema. No obvious deformities. NEUROLOGICAL: Awake and alert. No obvious cranial nerve deficits. Motor grossly within normal limits. Five out of 5 muscle strength in the arms and legs. Normal speech. PSYCHIATRIC: Appropriate mood and affect; insight and judgment normal. A/P Problem List: (1) Seizures ICD Code: R56.9 - Seizures Status: Acute (2) Drug overdose ICD Code: T50.901A - Poisoning by unspecified drugs, medicaments and biological substances, accidental (unintentional), initial encounter Status: Acute Assessment and Plan 32-year-old female brought to ED under [place] after she was observed taking various pills by mouth with the purpose of overdose. ED documentation showing patient reportedly ingested Extra strength Tylenol 10-20, Keppra 500mg 3 tabs, and Flexeril 8 tabs. Poison control was contacted and protocol initiated for IV Mucomyst. Patient completed Mucomyst course acetaminophen levels on 07/09 were less than 2.0 and LFT's back to normal. Patient was discharged to medical psychiatry services. Intentional overdose -Completed IV Mucomyst course, acetaminophen levels <2.0, LFT's back to normal as well on 07/09 - BMP today unremarkable with the exception of calcium of 8.4. Possibly secondary to poor nutrition. Seizure disorder -On Keppra 1500mg BID - Keppra level 12.8, neurology has also been consulted to follow patient. - Recommendations from neurology appreciated. [place] toothache left side: tylenol as need, added orajel, percocet as need for breakthrough pain bid. Monitor closely VS. No signs of systemic infection. DVT ppx ambulation Discussed with the patient, nurse Problem Qualifiers (1) Drug overdose: Qualified Codes: T50.902D - Poisoning by unspecified drugs, medicaments and biological substances, intentional self-harm, subsequent encounter Mayra Tovar MD Jul 13, 2017 08:36
[2017-07-13] MEDS: NICOTINE 21 MG/24 HR PATCH T-DERMAL SCH (09:00)
[2017-07-13] MEDS: levETIRAcetam 500 MG TAB PO SCH ×2 (09:13→20:49)
[2017-07-13] MEDS: ACETAMINOPHEN 325 MG TAB PO PRN ×3 (11:12→20:55)
--- NOTE | 2017-07-13 13:27 | HHI.PYPN ---
Subjective Chief Complaint: suicide attempt with multiple drug overdose Remarks Pt seen and discussed with staff. She has not had any seizure or pseudo - seizure activity today. She has been less irritable but remains dysphoric. NO SI /HI. Mental Status Examination Appearance: Disheveled Consciousness: Alert, Vigilant Orientation: Person, Place (at least) Motor Activity: Other (motor exam as above) Speech: Unremarkable Language: Adequate, Other (markedly profane) Fund of Knowledge: Adequate Attention and Concentration: Other (fair) Memory: Unremarkable (grossly intact on clinical exam) Mood: Irritable Affect: Other (restricted and dysphoric) Thought Process & Associations: Intact Thought Content: Appropriate Hallucination Type: None Delusion Type: None Suicidal Ideation: No (unreliable to contract for safety) Suicidal Plan: No Suicidal Intention: No Homicidal Ideation: No Homicidal Plan: No Homicidal Intention: No Insight: Poor Judgment: Poor Results Vitals/IOs Vital Signs Date Time Temp Pulse Resp B/P (MAP) Pulse Ox O2 Delivery O2 Flow Rate FiO2 07/13/17 12:16 14 07/13/17 05:40 98.2 74 100/58 (72) 97 Assessment & Plan Problem List: (1) Adjustment disorder with mixed disturbance of emotions and conduct ICD Codes: F43.25 - Adjustment disorder with mixed disturbance of emotions and conduct (2) Amphetamine abuse ICD Codes: F15.10 - Other stimulant abuse, uncomplicated (3) History of cocaine abuse ICD Codes: Z87.898 - Personal history of other specified conditions Assessment & Plan Will start sertraline 50mg PO QHS tonight. Continue current tx plan. Estimated LOS: days Justification for Cont. Inpt. monitoring for safety. medication changes Request HC Surrog/Guard Advoc?: Caitlin Lombardo MD Jul 13, 2017 13:27
[2017-07-13 17:24] VITALS: BP 126/76; PULSE 89; RESP 16; TEMP 97; O2SAT 99
[2017-07-13] MEDS: REMOVE OLD NICODERM (NICOTINE) PATCH T-DERMAL SCH (20:49)
[2017-07-13] MEDS ORDERED: SERTRALINE HCL 50 MG TAB PO SCH (21:00)
[2017-07-13] MEDS: diphenhydrAMINE HCL 50 MG CAP PO PRN (21:28)
[2017-07-14] MEDS: ACETAMINOPHEN 325 MG TAB PO PRN (03:17)
[2017-07-14] MEDS: BENZOCAINE 7.5% ORAL GEL 9.4 GM TUBE OROPHARYNG PRN (03:19)
[2017-07-14 06:00] VITALS: BP 104/67; PULSE 73; RESP 16; TEMP 98.1; O2SAT 97
--- NOTE | 2017-07-14 07:16 | HHI.PR ---
Subjective Remarks ain is controlled by meds. no fever or chills. no n/v/d/c. No seizures. Objective Vitals Vital Signs Date Time Temp Pulse Resp B/P (MAP) Pulse Ox O2 Delivery O2 Flow Rate FiO2 07/14/17 06:00 98.1 73 16 104/67 (79) 97 07/13/17 17:24 97.0 89 16 126/76 (93) 99 07/13/17 14:45 14 07/13/17 07:22 14 Result Diagram: 07/10/17 0721 Objective Remarks GENERAL: 32 yo F in the chair complaining of tooth ache. SKIN: Warm and dry. HEAD: Atraumatic. Normocephalic. EYES: Pupils equal and round. No scleral icterus. No injection or drainage. ENT: No nasal bleeding or discharge. Mucous membranes pink and moist. No visible inflammation, of left back wisdom tooth however patient has pain on palpation. NECK: Trachea midline. No JVD. CARDIOVASCULAR: Regular rate and rhythm. RESPIRATORY: No accessory muscle use. Clear to auscultation. Breath sounds equal bilaterally. GASTROINTESTINAL: Abdomen soft, non-tender, nondistended. Hepatic and splenic margins not palpable. MUSCULOSKELETAL: Extremities without clubbing, cyanosis, or edema. No obvious deformities. NEUROLOGICAL: Awake and alert. No obvious cranial nerve deficits. Motor grossly within normal limits. Five out of 5 muscle strength in the arms and legs. Normal speech. PSYCHIATRIC: Appropriate mood and affect; insight and judgment normal. A/P Problem List: (1) Seizures ICD Code: R56.9 - Seizures Status: Acute (2) Drug overdose ICD Code: T50.901A - Poisoning by unspecified drugs, medicaments and biological substances, accidental (unintentional), initial encounter Status: Acute Assessment and Plan 32-year-old female brought to ED under San act after she was observed taking various pills by mouth with the purpose of overdose. ED documentation showing patient reportedly ingested Extra strength Tylenol 10-20, Keppra 500mg 3 tabs, and Flexeril 8 tabs. Poison control was contacted and protocol initiated for IV Mucomyst. Patient completed Mucomyst course acetaminophen levels on 07/09 were less than 2.0 and LFT's back to normal. Patient was discharged to medical psychiatry services. Intentional overdose -Completed IV Mucomyst course, acetaminophen levels <2.0, LFT's back to normal as well on 07/09 - BMP today unremarkable with the exception of calcium of 8.4. Possibly secondary to poor nutrition. Seizure disorder -On Keppra 1500mg BID - Keppra level 12.8, neurology has also been consulted to follow patient. - Recommendations from neurology appreciated. [place] toothache left side: tylenol as need, added orajel, percocet as need for breakthrough pain bid. Monitor closely VS. No signs of systemic infection. DVT ppx ambulation Discussed with the patient, nurse Problem Qualifiers (1) Drug overdose: Qualified Codes: T50.902D - Poisoning by unspecified drugs, medicaments and biological substances, intentional self-harm, subsequent encounter Mayra Tovar MD Jul 14, 2017 07:16
[2017-07-14] MEDS: oxyCODONE/ACETAMINOPHEN 5 MG/325 MG TAB PO PRN (08:29)
[2017-07-14] MEDS: levETIRAcetam 500 MG TAB PO SCH (08:29)
[2017-07-14] MEDS: NICOTINE 21 MG/24 HR PATCH T-DERMAL SCH (08:39)
--- NOTE | 2017-07-14 10:40 | PD.TTN ---
Patient Problems 1. Discharge planning 2. Medication compliance 3. Knowledge deficit 4. Lack of coping skills Progress Toward Goals Provider Present: Dr. Gianni Garcia Provider Input: 07/11/17 patient will remain for observation over weekend for observation due to her severity of lability and her history 07/14 Patient continues to be compliant with medications and has some lability. Patient denies side effects from medication and is compliant. Patient denies suicidial ideations. Nurse(s) Input: 07/11/17 has been refusing to cooperate 07/14 Patient is more visual in dayroom and is more interactive with patients. Patient is cooperative and is attending to basic ADLs. Patient eats all meals and has been sleeping well. Psychiatric Counselors Present: Basia Mayen LCSW Psych Therapist Input: 07/11/17 patient has been reluctant to cooperate and is very aggitated and easily upset and complaints steadily ' 07/14 Patient states that she feels better and that she is ready to be discharged. Patient endorses feelings of saddness due to her passing away. Patient will have appropriate follow up care upon discharge and will return back apartment. Group Spec/RT/OT/MALONEY Present: Kirsten Love, GPS Group Spec/RT/OT/MALONEY Input: patient is discharged focused but participated in some groups , rude and uncooperati 07/14 patient is selective with groups Opal Bellamy Jul 14, 2017 10:40
[2017-07-14 11:30] VITALS: BP 110/69; PULSE 101; RESP 16; O2SAT 97
[2017-07-14] MEDS ORDERED: ZOLO50TA PO (12:39)
[2017-07-14] MEDS ORDERED: LEVE500 PO (12:39)
--- NOTE | 2017-07-14 12:44 | HHI.DS ---
Psychiatry Discharge Summary Inpatient Psychiatric care?: Yes Advance Directive: No Reason Not Provided: refused Mental Health AdvanceDirective: No Health Care Proxy: No Admission Admission Date Jul 09, 2017 at 18:05 Admission Diagnosis: (1) Adjustment disorder with mixed disturbance of emotions and conduct ICD Code: F43.25 - Adjustment disorder with mixed disturbance of emotions and conduct (2) Amphetamine abuse ICD Code: F15.10 - Other stimulant abuse, uncomplicated (3) History of cocaine abuse ICD Code: Z87.898 - Personal history of other specified conditions Brief History From Dr. Garcia's H&P: Patient is a 32-year-old white female initially admitted to the hospital on under San act by the [place] [employer] dated 07/08/17 at 1224 hrs. it document reviewed essentially stating called in by [facility] employee Tim eatonmarya [phone] he advised Nahed was at home with friends who observed her purposely taking various pills to include approximately 10-20 pills extra strength Tylenol, 500 mg Flexeril, approximately 3-500 mg cyclobenzaprine approximately 8 pills. Upon arrival I make contact with Rachna and asked her why she took many pills, Rachna responded angrily because she did not want to fucking live anymore and to leave her the fuck alone. Mandeep friend was on the scene and did observe her to take said pill. Rachna became slightly combative when she was being taken into custody but eventually stopped. Care is upset and wants to because her this past Friday from cancer. Rachna is also a meth user but it is unknown when the last time she used area and patient was initially admitted to the medical service under visit [phone] due to the toxic Tylenol levels that occurred with the overdose. Her urine toxicology was also positive for amphetamines. Patient medically cleared on the medical floor on the 07/09. Patient was seen on 07/[address] Gavino Barlow patient was quite oppositional angry irritable quite profane and assaultive towards him. However he felt she continued to meet criteria recommended transfer to this unit when medically clear. Patient was medically cleared transferred to this unit. Patient seen by me today with RN and medical student rosales. Patient's EMR reviewed patient' s had multiple contacts with this hospital since 2008. She has had multiple positive urine toxicology his for cocaine and cocaine metabolites. Though the most recent urine toxicology was only positive for amphetamines. Patient was seen in her room angry irritable quite profane using the "F" word multiple times when asked about that use she said I have freedom of speech. She reiterated her grief at the of her within the past week or so. She acknowledged being with friends who are using methamphetamine and a "smoke- filled" room. In attempting to discuss her past substance abuse issues he became angry or and more oppositional. When asked about a continues suicidality she refused to answer working at me again. Patient is states she's been [place] acted multiple times in the past and the only reason why I'm doing this today so that I can make money off of her. Patient was unable contract for safety. Patient was also seen by neurology on her medical admission. Her behavior was the same with Dr. clementsa was unable to do a full examination of her oppositionality. Denies any event at this time patient does meet criteria for further stay under the San act I'll do first opinion request second opinion. I feel she does have capacity to site of her medications. Continue her Keppra 1500 mg twice a day. We will order Her blood level for tomorrow morning. Patient states that she is plan to [facility] act and that some clinician at their facilities diagnosed with bipolar disorder and posttraumatic stress disorder multiple personality disorder. I question the veracity of those diagnoses considering the strong substance abuse she has documented our EMR. On my examination today: Patient seen and examined with nurse. Chart reviewed. Case discussed with nursing staff. On my exam, patient presents as oppositional and irritable. She admits to recent overdose on Tylenol, Keppra and other agents and says that she was "trying to kill myself because my just ." She currently describes the overdose as "stupid" and denies SI at this time. However, she remains extremely dysphoric, and it seems likely that she is not reliable to contract for safety. She exhibits prominent cluster B personality traits. She is unable to tolerate extended interview and says "if you guys are gonna keep me here, just keep me here!" She then shuts down and refuses further interview. Before doing so, I was able to obtain from patient that she has a history of BPAD, PTSD and anxiety, follows at [facility] and has a history of previous suicide attempts. I am unable to obtain any other past psychiatric, family, chemical dependency or social history from this patient as she is uncooperative with interview. Tobacco Use In Past 30 Days: Refused To Answer Alcohol Use: Never Hospital Course Patient's initial anger irritability manipulation and profanity slowly resolved with her compliance with medication. There also may have been some detoxing off her phentermine's. In any event patient seen today resting quietly in bed, does complain somewhat of a toothache. Though she is calm cooperative pleasant not showing the anger irritability or paranoia. She denies suicidality homicidality voices or visions. She does have her apartment to return to. She is compliant with her medications. At this time patient a longer meets criteria for inpatient psychiatric hospitalization thus patient be discharged today with Rx Zoloft 1 month think Keppra 1 month for follow-up through [facility]. A follow-up her PCP for her seizure disorder Results Blood Pressure 110 / 69 Vital Signs Date Time Temp Pulse Resp B/P (MAP) Pulse Ox O2 Delivery O2 Flow Rate FiO2 07/14/17 11:30 101 16 110/69 (83) 97 07/14/17 06:00 98.1 Laboratory Results Test 07/10/17 07:21 Cholesterol Level 127 MG/DL (120-200) HDL Cholesterol 59.5 MG/DL (40.0-60.0) Hemoglobin A1c 5.1 % (4.3-6.0) LDL Cholesterol 52 MG/DL (0-99) Triglycerides Level 80 MG/DL (42-150) Summary of Procedures None done Pending results at discharge: No Medications # of Antipsychotic meds at D/C: 0 Approp Antipsych med options 1 - Minimum of three failed multiple trials of monotherapy. 2 - Documented plan to taper to monotherapy due to previous use of multiple meds OR cross-taper in progress at D/C. 3 - Documentation of augmentation of Clozapine. 4 - Justification other than those listed in allowable values 1-3, document here : Discharge Discharge Date: Jul 14, 2017 Discharge Diagnosis: (1) Adjustment disorder with mixed disturbance of emotions and conduct Diagnosis: Principal ICD Code: F43.25 - Adjustment disorder with mixed disturbance of emotions and conduct (2) Amphetamine abuse Diagnosis: Secondary ICD Code: F15.10 - Other stimulant abuse, uncomplicated (3) History of cocaine abuse Diagnosis: Secondary ICD Code: Z87.898 - Personal history of other specified conditions Pt Condition on Discharge: Stable Discharge Disposition: Discharge Home Discharge Instructions Diet Instructions: As Tolerated, No Restrictions Activities you can perform: Regular-No Restrictions Scheduled Appointment: [facility] Ramirez (also follow-up with her PCP for seizure follow-up) Discharge Time > 30 minutes Mental Status Examination Appearance: Disheveled Consciousness: Alert, Vigilant Orientation: Person, Place (at least) Motor Activity: Other (motor exam as above) Speech: Unremarkable Language: Adequate, Other (markedly profane) Fund of Knowledge: Adequate Attention and Concentration: Other (fair) Memory: Unremarkable (grossly intact on clinical exam) Mood: Irritable Affect: Other (restricted and dysphoric) Thought Process & Associations: Intact Thought Content: Appropriate Hallucination Type: None Delusion Type: None Suicidal Ideation: No (unreliable to contract for safety) Suicidal Plan: No Suicidal Intention: No Homicidal Ideation: No Homicidal Plan: No Homicidal Intention: No Insight: Poor Judgment: Poor Discharge/Advance Care Plan Health Problems: (1) Adjustment disorder with mixed disturbance of emotions and conduct (2) Amphetamine abuse (3) History of cocaine abuse Goals to promote your health * To prevent worsening of your condition and complications * To maintain your health at the optimal level Directions to meet your goals Take your medications as prescribed Follow your dietary instruction Follow activity as directed Keep your appointments as scheduled Take your immunizations and boosters as scheduled If your symptoms worsen call your PCP, if no PCP go to Urgent Care Center or Emergency Room For 17/03 questions related to your inpatient stay or results of tests pending at discharge, please contact Dr. Jass Garcia at Smoking is Dangerous to Your Health. Avoid second hand smoking Jass Garcia MD Jul 14, 2017 12:44
== END 2017-07-14 14:00 | disposition home or self-care (01) | DRG 882 ==
LOC: H260 18:05 → UNDODISIN 18:37
PROVIDERS: ADMIT Psychiatry & Neurology Psychiatry; ATTEND Psychiatry & Neurology Psychiatry
DX: F43.25 Adjustment disorder with mixed disturbance of emotions and conduct (principal); G40.909 Epilepsy, unspecified, not intractable, without status epilepticus; F14.11 Cocaine abuse, in remission; F15.10 Other stimulant abuse, uncomplicated; K08.89 Other specified disorders of teeth and supporting structures; J45.909 Unspecified asthma, uncomplicated; F43.10 Post-traumatic stress disorder, unspecified; F41.9 Anxiety disorder, unspecified; Z91.5 Personal history of self-harm; Z23 Encounter for immunization
CPT/HCPCS: 80048; 80061; 80177; 83036; 90686; J2060; Q0163; Q2038

== ENCOUNTER 2017-12-01 13:21 | Emergency (ER) | payer OTHER ==
[~2017-12-01] VITALS: Ht 162.6 cm; Wt 63.0 kg
[~2017-12-01 13:21] MED LIST changes: +ZOLO50TA PO
[2017-12-01 13:30] VITALS: BP 128/82; PULSE 86; RESP 17; TEMP 97.3; O2SAT 100
[2017-12-01 14:52] LABS: AUTOMATED NEUTROPHIL # 5.3 TH/MM3 (1.8-7.7); BASOPHIL # 0.1 TH/MM3 (0-0.2); BASOPHIL % 0.6 % (0.0-2.0); EOSINOPHIL # 0.1 TH/MM3 (0-0.4); EOSINOPHIL % 1.7 % (0.0-4.0); HEMATOCRIT 39.2 % (35.0-46.0); HEMOGLOBIN 13.5 GM/DL (11.6-15.3); LYMPH % 23.3 % (9.0-44.0); LYMPHOCYTE # 1.9 TH/MM3 (1.0-4.8); MEAN CELL VOLUME 94.9 FL (80.0-100.0); MEAN CORPUSCULAR HEMOGLOBIN 32.7 PG (27.0-34.0); MEAN CORPUSCULAR HGB CONC 34.5 % (32.0-36.0); MEAN PLATELET VOLUME 9.6 FL (7.0-11.0); MONO % 9.8 % (0.0-8.0); MONOCYTE # 0.8 TH/MM3 (0-0.9); NEUT % 64.6 % (16.0-70.0); PLATELET COUNT 214 TH/MM3 (150-450); RED BLOOD COUNT 4.13 MIL/MM3 (4.00-5.30); RED CELL DISTRIBUTION WIDTH 12.8 % (11.6-17.2); WHITE BLOOD COUNT 8.2 TH/MM3 (4.0-11.0)
[2017-12-01 15:28] LABS: ALBUMIN 3.8 GM/DL (3.4-5.0); ALKALINE PHOSPHATASE 62 U/L (45-117); ALT (GPT) 18 U/L (10-53); AST (GOT) 14 U/L (15-37); BICARBONATE 23.3 MEQ/L (21.0-32.0); BLOOD UREA NITROGEN 8 MG/DL (7-18); CALCIUM 8.5 MG/DL (8.5-10.1); CHLORIDE 108 MEQ/L (98-107); GLOMERULAR FILTRATION RATE 65 ML/MIN (>89); GLUCOSE,RANDOM 67 MG/DL (74-106); SODIUM (NA) 141 MEQ/L (136-145); TOTAL BILIRUBIN ADULT 0.6 MG/DL (0.2-1.0)
[2017-12-01 15:29] LABS: ACETAMINOPHEN LESS THAN 2.0 MCG/ML (10.0-30.0)
--- NOTE | 2017-12-01 15:52 | RADRPT ---
EXAM DATE/TIME: 12/01/2017 15:43 [place] COMPARISON: CT BRAIN W/O CONTRAST, July 08, 2016, 9:41. INDICATIONS : Altered mental status. RADIATION DOSE: 27.61 CTDIvol (mGy) ; Patient motion MEDICAL HISTORY : Seizures. SURGICAL HISTORY : None. ENCOUNTER: Initial ACUITY: 1 day PAIN SCALE: 0/10 LOCATION: cranial TECHNIQUE: Multiple contiguous axial images were obtained of the head. Using automated exposure control and adj ustment of the mA and/or kV according to patient size, radiation dose was kept as low as reasonably a chievable to obtain optimal diagnostic quality images. DICOM format image data is available electro nically for review and comparison. FINDINGS: CEREBRUM: The ventricles are normal for age. No evidence of midline shift, mass lesion, hemorrhage or acute in farction. No extra-axial fluid collections are seen. POSTERIOR FOSSA: The cerebellum and brainstem are intact. The 4th ventricle is midline. The cerebellopontine angle i s unremarkable. EXTRACRANIAL: The visualized portion of the orbits is intact. SKULL: The calvaria is intact. No evidence of skull fracture. CONCLUSION: No acute disease. Pardeep Jorge MD on December 01, 2017 at 15:49 Board Certified Radiologist. This report was verified electronically.
--- NOTE | 2017-12-01 16:41 | PD ---
HPI Chief Complaint: Altered Mental Status Time Seen by Provider: 16:08 Travel History International Travel<30 days: No Contact w/Intl Traveler<30days: No Traveled to known affect area: No History of Present Illness HPI 32-year-old female that presents to the ED for evaluation of rash to her chest. Per patient they are "worms" as well as a bacterial infection of her blood that is causing this rash. Per patient she is picking at her skin. She also mentions that she did "ice" recently. She does have a history of polysubstance abuse. She also has a history of psychiatric illness. History is somewhat limited as patient is very paranoid and very hard to assess. Every time I try to listen to her hard to listen to her lungs she jumps and moves trying to see what I am doing. She denies any suicidal homicidal ideation but does appear to be somewhat psychotic and delusional. She states that she has worn since she is always what her warm R and he appears to be part of tape. She also appears to be making nonsensical statement telling me that she is doing and equation on her mind about the air conditioning causing an infection. Denies any fevers chills or sweats. No other medical issues. Again history is limited. She does have multiple allergies to different medications. PFSH Past Medical History Hx Anticoagulant Therapy: No Anemia: Yes Arthritis: No Asthma: Yes Autoimmune Disease: No Blood Disorders: No Bipolar Disorder: Yes Anxiety: Yes (PANIC ATTACKS) Depression: Yes Heart Rhythm Problems: No Cancer: No Cardiovascular Problems: No High Cholesterol: No Chemotherapy: No Chest Pain: No Congestive Heart Failure: No COPD: No Cerebrovascular Accident: No Diabetes: No Diminished Hearing: No Endocrine: No Gastrointestinal Disorders: Yes (HX OF HYPEREMESIS ) GERD: Yes Glaucoma: No Genitourinary: No Headaches: No Hepatitis: No Hiatal Hernia: No Hypertension: No Immune Disorder: No Implanted Vascular Access Dvce: Yes Kidney Stones: Yes Musculoskeletal: No Neurologic: No Psychiatric: Yes (patient stated "other issues" and refused to disclose) Reproductive: No Respiratory: No Immunizations Current: Yes Migraines: Yes Myocardial Infarction: No Radiation Therapy: No Renal Failure: No Seizures: Yes Sickle Cell Disease: No Sleep Apnea: No Thyroid Disease: No Ulcer: Yes PNEUMOCCOCAL Vaccine (Year): 3 ?: Unknown Menopausal: No : 11 Para: 4 Miscarriage: 7 : 0 Past Surgical History Abdominal Surgery: No AICD: No Body Medical Devices: VNS UPPER LEFT CHEST Cardiac Surgery: No Section: Yes (X 3) Ear Surgery: No Endocrine Surgery: No Eye Surgery: No Genitourinary Surgery: No Gynecologic Surgery: Yes () Hysterectomy: No Insulin Pump: No Neurologic Surgery: No Oral Surgery: No Pacemaker: No Thoracic Surgery: Yes (VAGUS NERVE STIMULATOR IMPLANTATION 2000) Other Surgery: Yes (C-SECTIONS, VAGUS NERVE STIMULATOR PLACED) Social History Alcohol Use: No Tobacco Use: No Substance Use: Yes (CRACK) Allergies-Medications (Allergen,Severity, Reaction): Coded Allergies: Sulfa (Sulfonamide Antibiotics) (Unverified Allergy, Severe, STOPS BREATHING, 07/08/17) adhesive (Unverified Allergy, Severe, PEELS HER SKIN, 07/08/17) cefepime (Unverified Allergy, Severe, A CHILD, 07/08/17) ceftaroline fosamil (Unverified Allergy, Severe, A CHILD, 07/08/17) cephalexin (Unverified Allergy, Severe, Hives, 07/08/17) ciprofloxacin (Unverified Allergy, Severe, CANNOT BREATH, 07/08/17) ibuprofen (Unverified Allergy, Severe, STOPS BREATHING, 07/08/17) morphine (Unverified Allergy, Severe, swelling, 07/08/17) penicillin G (Unverified Allergy, Severe, STOPS BREATHING, 07/08/17) vancomycin (Unverified Allergy, Severe, Anaphylaxis, 07/08/17) Reported Meds & Prescriptions Reported Meds & Active Scripts Active Zoloft (Sertraline HCl) 50 Mg Tab 50 Mg PO HS Keppra (Levetiracetam) 500 Mg Tab 1,500 Mg PO 3 PO Q12H Keppra (Levetiracetam) 500 Mg Tab 1,500 Mg PO Q12HR 30 Days Review of Systems ROS Limitations: Intoxication, Altered Mental Status, Poor Historian Except as stated in HPI: all other systems reviewed are Neg Physical Exam Exam Limitations: Intoxication, Poor Historian Narrative GENERAL: SKIN: Warm and dry. HEAD: Atraumatic. Normocephalic. EYES: Pupils equal and round. No scleral icterus. No injection or drainage. ENT: No nasal bleeding or discharge. Mucous membranes pink and moist. Tongue is midline. No uvula deviation. NECK: Trachea midline. No JVD. CARDIOVASCULAR: Regular rate and rhythm. No murmurs, S3, S4. RESPIRATORY: No accessory muscle use. Clear to auscultation. Breath sounds equal bilaterally. GASTROINTESTINAL: Abdomen soft, non-tender, nondistended. Hepatic and splenic margins not palpable. MUSCULOSKELETAL: Extremities without clubbing, cyanosis, or edema. No obvious deformities. Full range of motion of the upper and lower extremities bilaterally. 2+ pulses bilaterally. NEUROLOGICAL: Awake and alert. No obvious cranial nerve deficits. Motor grossly within normal limits. Five out of 5 muscle strength in the arms and legs. Normal speech. PSYCHIATRIC: Altered mood and affect; insight and judgment questionable Data Data Last Documented VS Vital Signs Date Time Temp Pulse Resp B/P (MAP) Pulse Ox O2 Delivery O2 Flow Rate FiO2 12/01/17 13:30 97.3 86 17 128/82 (97) 100 Orders Orders Complete Blood Count With Diff (12/01/17 13:58) Comprehensive Metabolic Panel (12/01/17 13:58) Beta Hcg (Quant/Titer) (12/01/17 13:58) Psych Screen (12/01/17 13:58) Alcohol (Ethanol) (12/01/17 13:58) Tylenol (Acetaminophen) (12/01/17 13:58) Ct Brain W/O Iv Contrast(Rout) (12/01/17 ) Drug Screen, Random Urine (12/01/17 14:33) Salicylates (Aspirin) (12/01/17 14:33) Tylenol (Acetaminophen) (12/01/17 14:00) Alcohol (Ethanol) (12/01/17 14:00) Levetiracetam (12/01/17 15:00) Diphenhydramine Inj (Benadryl Inj) (12/01/17 16:45) Lorazepam Inj (Ativan Inj) (12/01/17 16:45) Labs Laboratory Tests Test 12/01/17 14:00 White Blood Count 8.2 TH/MM3 Red Blood Count 4.13 MIL/MM3 Hemoglobin 13.5 GM/DL Hematocrit 39.2 % Mean Corpuscular Volume 94.9 FL Mean Corpuscular Hemoglobin 32.7 PG Mean Corpuscular Hemoglobin Concent 34.5 % Red Cell Distribution Width 12.8 % Platelet Count 214 TH/MM3 Mean Platelet Volume 9.6 FL Neutrophils (%) (Auto) 64.6 % Lymphocytes (%) (Auto) 23.3 % Monocytes (%) (Auto) 9.8 % Eosinophils (%) (Auto) 1.7 % Basophils (%) (Auto) 0.6 % Neutrophils # (Auto) 5.3 TH/MM3 Lymphocytes # (Auto) 1.9 TH/MM3 Monocytes # (Auto) 0.8 TH/MM3 Eosinophils # (Auto) 0.1 TH/MM3 Basophils # (Auto) 0.1 TH/MM3 CBC Comment DIFF FINAL Differential Comment Blood Urea Nitrogen 8 MG/DL Creatinine 1.00 MG/DL Random Glucose 67 MG/DL Total Protein 7.0 GM/DL Albumin 3.8 GM/DL Calcium Level 8.5 MG/DL Alkaline Phosphatase 62 U/L Aspartate Amino Transf (AST/SGOT) 14 U/L Alanine Aminotransferase (ALT/SGPT) 18 U/L Total Bilirubin 0.6 MG/DL Sodium Level 141 MEQ/L Potassium Level 3.3 MEQ/L Chloride Level 108 MEQ/L Carbon Dioxide Level 23.3 MEQ/L Anion Gap 10 MEQ/L Estimat Glomerular Filtration Rate 65 ML/MIN Human Chorionic Gonadotropin, Quant LESS THAN 1 MIU/ML Salicylates Level LESS THAN 1.7 MG/DL Urine Opiates Screen NEG Acetaminophen Level LESS THAN 2.0 MCG/ML Urine Barbiturates Screen NEG Urine Amphetamines Screen POS Urine Benzodiazepines Screen NEG Urine Cocaine Screen NEG Urine Cannabinoids Screen NEG Ethyl Alcohol Level LESS THAN 3 MG/DL MDM Medical Decision Making Medical Screen Exam Complete: Yes Emergency Medical Condition: Yes Medical Record Reviewed: Yes Differential Diagnosis Depression versus suicidal ideation versus anxiety versus adjustment disorder versus mood disorder versus bipolar disorder versus schizophrenia versus paranoid disorder versus psychosis versus substance abuse versus alcohol abuse versus alcohol induced psychosis versus homicidality addition versus cutting versus personality disorder Narrative Course 32-year-old female that presents to the ED for evaluation of lesions to her breast. Patient was properly examined and was found to have signs and symptoms of unclear etiology. Appears that she has been picking at her skin and some of the lesions do appear to be possibly herpetic. But hard to assess as patient is very hard to get a history from. She does appear to be delusional and likely psychotic. Likely secondary to drugs. Labs were ordered. Imaging was ordered. Patient will be signed out to oncoming provider. Diagnosis Primary Impression: Amphetamine abuse Marck Phoenix Dec 01, 2017 16:41
[2017-12-01] MEDS ORDERED: LORazepam 2 MG/ML VIAL IM ONE (16:45)
[2017-12-01] MEDS ORDERED: diphenhydrAMINE HCL 50 MG/ML VIAL IM ONE (16:45)
[2017-12-01] MEDS ORDERED: diphenhydrAMINE HCL 50 MG/ML VIAL IV PUSH ONE (17:00)
[2017-12-01] MEDS ORDERED: LORazepam 2 MG/ML VIAL IV PUSH ONE (17:00)
[2017-12-01] MEDS ORDERED: SODIUM CHLOR 0.9% 1000 ML INJ 1,000 ML IV ONE (17:00)
--- NOTE | 2017-12-01 17:15 | PD ---
Physical Exam Date Seen by Provider: Dec 01, 2017 Time Seen by Provider: 17:12 Narrative For full history and physical examination please see previous providers note. Data Data Last Documented VS Vital Signs Date Time Temp Pulse Resp B/P (MAP) Pulse Ox O2 Delivery O2 Flow Rate FiO2 12/01/17 17:49 99 15 99 Room Air 12/01/17 13:30 97.3 128/82 (97) Orders Orders Complete Blood Count With Diff (12/01/17 13:58) Comprehensive Metabolic Panel (12/01/17 13:58) Beta Hcg (Quant/Titer) (12/01/17 13:58) Psych Screen (12/01/17 13:58) Alcohol (Ethanol) (12/01/17 13:58) Tylenol (Acetaminophen) (12/01/17 13:58) Ct Brain W/O Iv Contrast(Rout) (12/01/17 ) Drug Screen, Random Urine (12/01/17 14:33) Salicylates (Aspirin) (12/01/17 14:33) Tylenol (Acetaminophen) (12/01/17 14:00) Alcohol (Ethanol) (12/01/17 14:00) Levetiracetam (12/01/17 15:00) Diphenhydramine Inj (Benadryl Inj) (12/01/17 16:45) Lorazepam Inj (Ativan Inj) (12/01/17 16:45) Sodium Chlor 0.9% 1000 Ml Inj (Ns 1000 M (12/01/17 17:00) Lorazepam Inj (Ativan Inj) (12/01/17 17:00) Diphenhydramine Inj (Benadryl Inj) (12/01/17 17:00) Iv Access Insert/Monitor (12/01/17 16:46) Oximetry (12/01/17 16:46) Labs Laboratory Tests Test 12/01/17 14:00 White Blood Count 8.2 TH/MM3 Red Blood Count 4.13 MIL/MM3 Hemoglobin 13.5 GM/DL Hematocrit 39.2 % Mean Corpuscular Volume 94.9 FL Mean Corpuscular Hemoglobin 32.7 PG Mean Corpuscular Hemoglobin Concent 34.5 % Red Cell Distribution Width 12.8 % Platelet Count 214 TH/MM3 Mean Platelet Volume 9.6 FL Neutrophils (%) (Auto) 64.6 % Lymphocytes (%) (Auto) 23.3 % Monocytes (%) (Auto) 9.8 % Eosinophils (%) (Auto) 1.7 % Basophils (%) (Auto) 0.6 % Neutrophils # (Auto) 5.3 TH/MM3 Lymphocytes # (Auto) 1.9 TH/MM3 Monocytes # (Auto) 0.8 TH/MM3 Eosinophils # (Auto) 0.1 TH/MM3 Basophils # (Auto) 0.1 TH/MM3 CBC Comment DIFF FINAL Differential Comment Blood Urea Nitrogen 8 MG/DL Creatinine 1.00 MG/DL Random Glucose 67 MG/DL Total Protein 7.0 GM/DL Albumin 3.8 GM/DL Calcium Level 8.5 MG/DL Alkaline Phosphatase 62 U/L Aspartate Amino Transf (AST/SGOT) 14 U/L Alanine Aminotransferase (ALT/SGPT) 18 U/L Total Bilirubin 0.6 MG/DL Sodium Level 141 MEQ/L Potassium Level 3.3 MEQ/L Chloride Level 108 MEQ/L Carbon Dioxide Level 23.3 MEQ/L Anion Gap 10 MEQ/L Estimat Glomerular Filtration Rate 65 ML/MIN Human Chorionic Gonadotropin, Quant LESS THAN 1 MIU/ML Salicylates Level LESS THAN 1.7 MG/DL Urine Opiates Screen NEG Acetaminophen Level LESS THAN 2.0 MCG/ML Urine Barbiturates Screen NEG Urine Amphetamines Screen POS Urine Benzodiazepines Screen NEG Urine Cocaine Screen NEG Urine Cannabinoids Screen NEG Ethyl Alcohol Level LESS THAN 3 MG/DL [facility] Medical Record Reviewed: Yes Supervised Visit with ARLENE: Yes Interpretation(s) Laboratory Tests Test 12/01/17 14:00 White Blood Count 8.2 TH/MM3 Red Blood Count 4.13 MIL/MM3 Hemoglobin 13.5 GM/DL Hematocrit 39.2 % Mean Corpuscular Volume 94.9 FL Mean Corpuscular Hemoglobin 32.7 PG Mean Corpuscular Hemoglobin Concent 34.5 % Red Cell Distribution Width 12.8 % Platelet Count 214 TH/MM3 Mean Platelet Volume 9.6 FL Neutrophils (%) (Auto) 64.6 % Lymphocytes (%) (Auto) 23.3 % Monocytes (%) (Auto) 9.8 % Eosinophils (%) (Auto) 1.7 % Basophils (%) (Auto) 0.6 % Neutrophils # (Auto) 5.3 TH/MM3 Lymphocytes # (Auto) 1.9 TH/MM3 Monocytes # (Auto) 0.8 TH/MM3 Eosinophils # (Auto) 0.1 TH/MM3 Basophils # (Auto) 0.1 TH/MM3 CBC Comment DIFF FINAL Differential Comment Blood Urea Nitrogen 8 MG/DL Creatinine 1.00 MG/DL Random Glucose 67 MG/DL Total Protein 7.0 GM/DL Albumin 3.8 GM/DL Calcium Level 8.5 MG/DL Alkaline Phosphatase 62 U/L Aspartate Amino Transf (AST/SGOT) 14 U/L Alanine Aminotransferase (ALT/SGPT) 18 U/L Total Bilirubin 0.6 MG/DL Sodium Level 141 MEQ/L Potassium Level 3.3 MEQ/L Chloride Level 108 MEQ/L Carbon Dioxide Level 23.3 MEQ/L Anion Gap 10 MEQ/L Estimat Glomerular Filtration Rate 65 ML/MIN Human Chorionic Gonadotropin, Quant LESS THAN 1 MIU/ML Salicylates Level LESS THAN 1.7 MG/DL Urine Opiates Screen NEG Acetaminophen Level LESS THAN 2.0 MCG/ML Urine Barbiturates Screen NEG Urine Amphetamines Screen POS Urine Benzodiazepines Screen NEG Urine Cocaine Screen NEG Urine Cannabinoids Screen NEG Ethyl Alcohol Level LESS THAN 3 MG/DL Vital Signs Date Time Temp Pulse Resp B/P (MAP) Pulse Ox O2 Delivery O2 Flow Rate FiO2 12/01/17 13:30 97.3 86 17 128/82 (97) 100 Differential Diagnosis Substance abuse versus psychosis versus metabolic abnormality versus mood disorder versus other Narrative Course For full history and physical examination please see previous providers note. Patient was placed under San act for her own safety. She is hallucinating, there is great potential for self care deficit. Patient is not exhibiting some decision-making skills. Patient continued to complain of itching and worms underneath her skin. She is actively scratching and appears to be jumpy. IV fluids, Ativan and Benadryl ordered. Mental health screening discussed with the patient. Psychiatric screen ordered. Labs reviewed, no acute findings identified. Urine drug screen is positive for amphetamines. Acetaminophen, salicylate and aspirin are all unremarkable. Patient will be given oral potassium supplementation. Patient is medically cleared for psychiatric evaluation at this time. She has been resting comfortably since administration of Ativan and Benadryl. Diagnosis Primary Impression: Amphetamine abuse Additional Impression: Medical clearance for psychiatric admission Condition: Stable Dorinda Portillo [facility] Dec 01, 2017 17:15
[2017-12-01 17:49] VITALS: PULSE 99; RESP 15; O2SAT 99
[2017-12-02 01:00] VITALS: BP 92/65; PULSE 81; RESP 16; TEMP 98.8; O2SAT 97
[2017-12-02 06:16] VITALS: BP_SYST 111; BP_SYST 99; BP_DIAS 61; BP_DIAS 67; PULSE 80; PULSE 86; RESP 18; TEMP 96.9; O2SAT 94; O2SAT 98
--- NOTE | 2017-12-02 10:25 | PD ---
Physical Exam Date Seen by Provider: Dec 02, 2017 Time Seen by Provider: 10:24 Narrative 32-year-old female previously medically cleared for psychiatric evaluation, has been seen by psychiatric staff and deemed to be psychiatrically stable for discharge at this time. Patient remains medically stable for discharge. Follow -up will be based on psychiatric note. Data Data Last Documented VS Vital Signs Date Time Temp Pulse Resp B/P (MAP) Pulse Ox O2 Delivery O2 Flow Rate FiO2 12/02/17 06:16 96.9 80 18 99/61 (74) 98 Room Air Orders Orders Complete Blood Count With Diff (12/01/17 13:58) Comprehensive Metabolic Panel (12/01/17 13:58) Beta Hcg (Quant/Titer) (12/01/17 13:58) Psych Screen (12/01/17 13:58) Alcohol (Ethanol) (12/01/17 13:58) Tylenol (Acetaminophen) (12/01/17 13:58) Ct Brain W/O Iv Contrast(Rout) (12/01/17 ) Drug Screen, Random Urine (12/01/17 14:33) Salicylates (Aspirin) (12/01/17 14:33) Tylenol (Acetaminophen) (12/01/17 14:00) Alcohol (Ethanol) (12/01/17 14:00) Levetiracetam (12/01/17 15:00) Diphenhydramine Inj (Benadryl Inj) (12/01/17 16:45) Lorazepam Inj (Ativan Inj) (12/01/17 16:45) Sodium Chlor 0.9% 1000 Ml Inj (Ns 1000 M (12/01/17 17:00) Lorazepam Inj (Ativan Inj) (12/01/17 17:00) Diphenhydramine Inj (Benadryl Inj) (12/01/17 17:00) Iv Access Insert/Monitor (12/01/17 16:46) Oximetry (12/01/17 16:46) Diet Regular Basic (12/02/17 Breakfast) Labs Laboratory Tests Test 12/01/17 14:00 12/01/17 23:40 White Blood Count 8.2 TH/MM3 Red Blood Count 4.13 MIL/MM3 Hemoglobin 13.5 GM/DL Hematocrit 39.2 % Mean Corpuscular Volume 94.9 FL Mean Corpuscular Hemoglobin 32.7 PG Mean Corpuscular Hemoglobin Concent 34.5 % Red Cell Distribution Width 12.8 % Platelet Count 214 TH/MM3 Mean Platelet Volume 9.6 FL Neutrophils (%) (Auto) 64.6 % Lymphocytes (%) (Auto) 23.3 % Monocytes (%) (Auto) 9.8 % Eosinophils (%) (Auto) 1.7 % Basophils (%) (Auto) 0.6 % Neutrophils # (Auto) 5.3 TH/MM3 Lymphocytes # (Auto) 1.9 TH/MM3 Monocytes # (Auto) 0.8 TH/MM3 Eosinophils # (Auto) 0.1 TH/MM3 Basophils # (Auto) 0.1 TH/MM3 CBC Comment DIFF FINAL Differential Comment Blood Urea Nitrogen 8 MG/DL Creatinine 1.00 MG/DL Random Glucose 67 MG/DL Total Protein 7.0 GM/DL Albumin 3.8 GM/DL Calcium Level 8.5 MG/DL Alkaline Phosphatase 62 U/L Aspartate Amino Transf (AST/SGOT) 14 U/L Alanine Aminotransferase (ALT/SGPT) 18 U/L Total Bilirubin 0.6 MG/DL Sodium Level 141 MEQ/L Potassium Level 3.3 MEQ/L Chloride Level 108 MEQ/L Carbon Dioxide Level 23.3 MEQ/L Anion Gap 10 MEQ/L Estimat Glomerular Filtration Rate 65 ML/MIN Human Chorionic Gonadotropin, Quant LESS THAN 1 MIU/ML Salicylates Level LESS THAN 1.7 MG/DL Urine Opiates Screen NEG Acetaminophen Level LESS THAN 2.0 MCG/ML Urine Barbiturates Screen NEG Urine Amphetamines Screen POS Urine Benzodiazepines Screen NEG Urine Cocaine Screen NEG Urine Cannabinoids Screen NEG Ethyl Alcohol Level LESS THAN 3 MG/DL [facility] [place] Medical Record Reviewed: Yes Supervised Visit with ARLENE: Yes Narrative Course 32-year-old female previously medically cleared for psychiatric evaluation, has been seen by psychiatric staff and deemed to be psychiatrically stable for discharge at this time. Patient remains medically stable for discharge. Follow -up will be based on psychiatric note. Diagnosis Primary Impression: Amphetamine abuse Additional Impression: Medical clearance for psychiatric admission Patient Instructions: General Instructions Disposition: 01 DISCHARGE HOME Condition: Stable Shaun Ortiz Dec 02, 2017 10:25
--- NOTE | 2017-12-02 12:49 | PD.PSY.CON ---
Provisional Diagnosis Admission Date Dickerson I. Substance-induced psychotic disorder, amphetamine use disorder, self-reported bipolar disorder Dickerson II. Unspecified personality disorder Dickerson III. Seizures, anemia History of Present Illness Service Psychiatry Consult Requested By ER Reason for Consult Psychosis Primary Care Physician Unknown HPI The patient is 32-year-old woman, domiciled in [facility] with her boyfriend, unemployed, on SSI process, with psychiatric history of self- reported bipolar, polysubstance dependence including amphetamines, cocaine use, cannabis, alcohol, multiple psychiatric hospitalizations, numerous ER visits due to drug related issues, suicidal attempts, self cutting behavior, poor impulse control, aggressive behavior, noncompliant with medications, medical history of seizures, keaton presents to the ED for evaluation of rash to her chest. Per patient they are "worms" as well as a bacterial infection of her blood that is causing this rash. Per patient she is picking at her skin. She also mentions that she did "ice" recently. History is somewhat limited as patient is very paranoid and very hard to assess. Every time I try to listen to her hard to listen to her lungs she jumps and moves trying to see what I am doing. She denies any suicidal homicidal ideation but does appear to be somewhat psychotic and delusional. She states that she has worn since she is always what her warm R and he appears to be part of tape. She also appears to be making nonsensical statement telling me that she is doing and equation on her mind about the air conditioning causing an infection. On psychiatric evaluation today the patient is superficially cooperative, irritable and verbally hostile very malodorous. Patient is reporting to be discharged because "I feel better now". Patient admits the last night she was high amphetamines," I also used cocaine and other drugs". She denies depression, denies anxiety, denies sandra and psychosis. She denies any medical complaint, denies suicidal and homicidal ideation, denies visual and auditory hallucinations. The patient is oriented 3. Review of Systems Constitutional: DENIES: Diaphoretic episodes, Fatigue, Fever, Weight gain, Weight loss, Chills, Dizziness, Change in appetite, Night Sweats Endocrine: DENIES: Abnorml menstrual pattern, Heat/cold intolerance, Polydipsia , Polyuria, Polyphagia Eyes: DENIES: Blurred vision, Diplopia, Eye inflammation, Eye pain, Vision loss , Photosensitivity, Double Vision Ears, nose, mouth, throat: DENIES: Tinnitus, Hearing loss, Vertigo, Nasal discharge, Oral lesions, Throat pain, Hoarseness, Ear Pain, Running Nose, Epistaxis, Sinus Pain, Toothache, Odynophagia Respiratory: DENIES: Apneas, Cough, Snoring, Wheezing, Hemoptysis, Sputum production, Shortness of breath Cardiovascular: DENIES: Chest pain, Palpitations, Syncope, Dyspnea on Exertion , PND, Lower Extremity Edema, Orthopnea, Claudication Gastrointestinal: DENIES: Abdominal pain, Black stools, Bloody stools, Constipation, Diarrhea, Nausea, Vomiting, Difficulty Swallowing, Anorexia Genitourinary: DENIES: Abnormal vaginal bleeding, Dysmenorrhea, Dyspareunia, Sexual dysfunction, Urinary frequency, Urinary incontinence, Urgency, Hematuria , Dysuria, Nocturia, Vaginal discharge Musculoskeletal: DENIES: Joint pain, Muscle aches, Stiffness, Joint Swelling, Back pain, Neck pain Integumentary: DENIES: Abnormal pigmentation, Pruritus, Rash, Nail changes, Breast masses, Breast skin changes, Nipple discharge Hematologic/lymphatic: DENIES: Bruising, Lymphadenopathy Immunologic/allergic: DENIES: Eczema, Urticaria Psychiatric: DENIES: Anxiety, Confusion, Mood changes, Depression, Hallucinations, Agitation, Suicidal Ideation, Homicidal Ideation, Delusions Past Family Social History Coded Allergies: Sulfa (Sulfonamide Antibiotics) (Unverified Allergy, Severe, STOPS BREATHING, 07/08/17) adhesive (Unverified Allergy, Severe, PEELS HER SKIN, 07/08/17) cefepime (Unverified Allergy, Severe, A CHILD, 07/08/17) ceftaroline fosamil (Unverified Allergy, Severe, A CHILD, 07/08/17) cephalexin (Unverified Allergy, Severe, Hives, 07/08/17) ciprofloxacin (Unverified Allergy, Severe, CANNOT BREATH, 07/08/17) ibuprofen (Unverified Allergy, Severe, STOPS BREATHING, 07/08/17) morphine (Unverified Allergy, Severe, swelling, 07/08/17) penicillin G (Unverified Allergy, Severe, STOPS BREATHING, 07/08/17) vancomycin (Unverified Allergy, Severe, Anaphylaxis, 07/08/17) Active Scripts Sertraline (Zoloft) 50 Mg Tab, 50 MG PO HS for health, #30 TAB 0 Refills Prov:Jass Garcia MD 07/14/17 Levetiracetam (Keppra) 500 Mg Tab, 1500 MG PO 3 po q12h for health, #180 TAB 0 Refills Prov:Jass Garcia MD 07/14/17 Levetiracetam (Keppra) 500 Mg Tab, 1500 MG PO Q12HR for seizure for 30 Days, # 60 TAB 1 Refill Prov:Celina Menjivar 07/09/17 Family Psych History No family psychiatric history Social History Patient was born and raised in [facility], she lives in [place] with her boyfriend, unemployed, on SSI process, highest level of education is some college Patient's Strengths (min. 2) Verbal communicate Physical Exam Vital Signs Vital Signs Date Time Temp Pulse Resp B/P (MAP) Pulse Ox O2 Delivery O2 Flow Rate FiO2 12/02/17 06:16 96.9 80 18 99/61 (74) 98 Room Air Lab Results Test 12/01/17 14:00 12/01/17 23:40 White Blood Count 8.2 TH/MM3 Red Blood Count 4.13 MIL/MM3 Hemoglobin 13.5 GM/DL Hematocrit 39.2 % Mean Corpuscular Volume 94.9 FL Mean Corpuscular Hemoglobin 32.7 PG Mean Corpuscular Hemoglobin Concent 34.5 % Red Cell Distribution Width 12.8 % Platelet Count 214 TH/MM3 Mean Platelet Volume 9.6 FL Neutrophils (%) (Auto) 64.6 % Lymphocytes (%) (Auto) 23.3 % Monocytes (%) (Auto) 9.8 % Eosinophils (%) (Auto) 1.7 % Basophils (%) (Auto) 0.6 % Neutrophils # (Auto) 5.3 TH/MM3 Lymphocytes # (Auto) 1.9 TH/MM3 Monocytes # (Auto) 0.8 TH/MM3 Eosinophils # (Auto) 0.1 TH/MM3 Basophils # (Auto) 0.1 TH/MM3 CBC Comment DIFF FINAL Differential Comment Blood Urea Nitrogen 8 MG/DL Creatinine 1.00 MG/DL Random Glucose 67 MG/DL Total Protein 7.0 GM/DL Albumin 3.8 GM/DL Calcium Level 8.5 MG/DL Alkaline Phosphatase 62 U/L Aspartate Amino Transf (AST/SGOT) 14 U/L Alanine Aminotransferase (ALT/SGPT) 18 U/L Total Bilirubin 0.6 MG/DL Sodium Level 141 MEQ/L Potassium Level 3.3 MEQ/L Chloride Level 108 MEQ/L Carbon Dioxide Level 23.3 MEQ/L Anion Gap 10 MEQ/L Estimat Glomerular Filtration Rate 65 ML/MIN Human Chorionic Gonadotropin, Quant LESS THAN 1 MIU/ML Salicylates Level LESS THAN 1.7 MG/DL Urine Opiates Screen NEG Acetaminophen Level LESS THAN 2.0 MCG/ML Urine Barbiturates Screen NEG Urine Amphetamines Screen POS Urine Benzodiazepines Screen NEG Urine Cocaine Screen NEG Urine Cannabinoids Screen NEG Ethyl Alcohol Level LESS THAN 3 MG/DL Mental Status Examination Appearance: Appropriate Consciousness: Alert Orientation: x4 Motor Activity: Normal gait Speech: Unremarkable Language: Adequate Fund of Knowledge: Adequate Attention and Concentration: Adequate Memory: Unremarkable Mood: Angry Affect: Irritable Thought Process & Associations: Intact Thought Content: Appropriate Hallucination Type: None Delusion Type: None Suicidal Ideation: No Suicidal Plan: No Suicidal Intention: No Homicidal Ideation: No Homicidal Plan: No Homicidal Intention: No Insight: Adequate Judgment: Adequate Assessment & Plan Problem List: (1) Substance-induced psychotic disorder ICD Codes: F19.959 - Other psychoactive substance use, unspecified with psychoactive substance-induced psychotic disorder, unspecified Assessment & Plan: At the moment of the psychiatric evaluation the patient does not present any neuropsychiatric symptoms that require an immediate psychiatric intervention. The patient denies depressive symptoms, denies anxiety, denies sandra and psychosis. The patient denies suicidal and homicidal ideation. The patient denies visual and auditory hallucinations. Described psychotic and aggressive behavior, somatic delusions of having worms crawling in her skin (formication) were secondary to hyper dopaminergic state due to use of amphetamines and cocaine. She is now clinically sober. She does not meet criteria for involuntary psychiatric admission. Detox/rehab referral offer, the patient declined. San act will be lifted. Assessment & Plan Estimated LOS: Gavino Pagan MD Dec 02, 2017 12:49
== END 2017-12-02 11:31 | disposition home or self-care (01) ==
LOC: NEPD 13:21 → NEPJ 12-02 11:31
DX: F15.10 Other stimulant abuse, uncomplicated (principal)
CPT/HCPCS: 70450; 80053; 80177; 80307; 84702; 85025; 96374; 96375; 99283; J1200; J2060; J7030

== ENCOUNTER 2018-01-20 19:26 | Emergency (ER) | payer SELFPAY ==
[~2018-01-20] VITALS: Ht 157.5 cm; Wt 57.0 kg
[2018-01-20 19:30] VITALS: BP 128/73; PULSE 83; RESP 20; O2SAT 100
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
[2018-01-20] MEDS ORDERED: LEVE500 PO (19:59)
[2018-01-20] MEDS ORDERED: levETIRAcetam INJ 500 MG in SODIUM CHLORIDE 0.9% INJ 100 ML IV ONE (20:00)
[2018-01-20] MEDS ORDERED: SODIUM CHLOR 0.9% 1000 ML INJ 1,000 ML IV SCH (20:00)
[2018-01-20 20:39] LABS: AUTOMATED NEUTROPHIL # 3.1 TH/MM3 (1.8-7.7); BASOPHIL # 0.1 TH/MM3 (0-0.2); BASOPHIL % 0.9 % (0.0-2.0); EOSINOPHIL # 0.2 TH/MM3 (0-0.4); EOSINOPHIL % 3.4 % (0.0-4.0); HEMATOCRIT 43.3 % (35.0-46.0); HEMOGLOBIN 14.7 GM/DL (11.6-15.3); LYMPHOCYTE # 2.2 TH/MM3 (1.0-4.8); MEAN CELL VOLUME 96.3 FL (80.0-100.0); MEAN CORPUSCULAR HEMOGLOBIN 32.6 PG (27.0-34.0); MEAN CORPUSCULAR HGB CONC 33.9 % (32.0-36.0); MEAN PLATELET VOLUME 8.7 FL (7.0-11.0); MONO % 11.8 % (0.0-8.0); MONOCYTE # 0.7 TH/MM3 (0-0.9); NEUT % 48.9 % (16.0-70.0); PLATELET COUNT 254 TH/MM3 (150-450); RED CELL DISTRIBUTION WIDTH 13.2 % (11.6-17.2); WHITE BLOOD COUNT 6.3 TH/MM3 (4.0-11.0)
--- NOTE | 2018-01-20 20:50 | RADRPT ---
EXAM DATE: 01/20/2018 8:44 PM EDT AGE/SEX: 33 years / Female INDICATIONS: Fall. Low back pain. CLINICAL DATA: This is the patient's initial encounter. Patient reports that signs and symptoms have been present for 1 day and indicates a pain score of 7/10. MEDICAL/SURGICAL HISTORY: None. None. COMPARISON: [facility] [place] SPINE LUMBAR LTD (AP & LAT), 11/08/2011. . FINDINGS: The vertebral bodies are in normal alignment without evidence of compression deformity Bone density is normal for age. Soft tissues are grossly intact. No significant change compared to the prior exam . CONCLUSION: Unremarkable plain films of the lumbar spine. No new or significant changes compared to the prior tim dy. Electronically signed by: Luis Le MD 01/20/2018 8:49 PM EDT
--- NOTE | 2018-01-20 20:51 | RADRPT ---
EXAM DATE: 01/20/2018 8:46 PM EDT AGE/SEX: 33 years / Female INDICATIONS: Fall. Mid back and chest pain. CLINICAL DATA: This is the patient's initial encounter. Patient reports that signs and symptoms have been present for 1 day and indicates a pain score of 7/10. MEDICAL/SURGICAL HISTORY: None. None. COMPARISON: [facility] [place], CHEST SINGLE AP, 01/27/2011. . FINDINGS: A single AP view of the chest demonstrates the lungs to be symmetrically aerated without evidence of mass, infiltrate or effusion. The cardiomediastinal contours are unremarkable. Osseous structures a re intact. There are degenerative changes at both shoulder joints. There is a device overlying the le ft chest. No significant changes compared to the prior study. CONCLUSION: No acute intrathoracic disease. Electronically signed by: Luis Le MD 01/20/2018 8:50 PM EDT
--- NOTE | 2018-01-20 20:52 | RADRPT ---
EXAM DATE: 01/20/2018 8:42 PM EDT AGE/SEX: 33 years / Female INDICATIONS: Fall. Right shoulder pain. Limited motion. CLINICAL DATA: This is the patient's initial encounter. Patient reports that signs and symptoms have been present for 1 day and indicates a pain score of 8/10. MEDICAL/SURGICAL HISTORY: None. None. [place] [facility] [place] (>2VWS[place]/04/2015. . FINDINGS: Bony structures are intact and in normal alignment. Joints are intact without dislocation. There are chronic bony degenerative changes involving the right shoulder joint. This is mildly increased gage red to the prior examination. Osseous density is normal. Soft tissues are unremarkable. No radiopa que foreign bodies seen. CONCLUSION: 1. No acute fracture or joint dislocation. 2. Chronic degenerative changes involving the right shoulder joint which appears to be mildly increa sed compared to the prior study. Electronically signed by: Luis Le MD 01/20/2018 8:51 PM EDT
--- NOTE | 2018-01-20 20:52 | RADRPT ---
EXAM DATE: 01/20/2018 8:45 PM EDT AGE/SEX: 33 years / Female INDICATIONS: Fall. Mid back pain. CLINICAL DATA: This is the patient's initial encounter. Patient reports that signs and symptoms have been present for 1 day and indicates a pain score of 7/10. MEDICAL/SURGICAL HISTORY: None. None. COMPARISON: No prior [place] exams available for comparison. FINDINGS: The vertebral bodies are in normal alignment without evidence of compression deformity Bone density is normal for age. Soft tissues are grossly intact. No evidence of paraspinal soft tissue swelling. CONCLUSION: Unremarkable plain films of the thoracic spine. Electronically signed by: Luis Le MD 01/20/2018 8:51 PM EDT
[2018-01-20 20:54] LABS: BICARBONATE 28.2 MEQ/L (21.0-32.0); BLOOD UREA NITROGEN 15 MG/DL (7-18); CALCIUM 8.4 MG/DL (8.5-10.1); CHLORIDE 104 MEQ/L (98-107); CREATININE 0.85 MG/DL (0.50-1.00); GLOMERULAR FILTRATION RATE 78 ML/MIN (>89); GLUCOSE,RANDOM 65 MG/DL (74-106); SODIUM (NA) 139 MEQ/L (136-145)
--- NOTE | 2018-01-20 20:56 | RADRPT ---
EXAM DATE: 01/20/2018 8:51 PM EDT AGE/SEX: 33 years / Female INDICATIONS: Seizure. CLINICAL DATA: This is the patient's initial encounter. Patient reports that signs and symptoms have been present for 1 day and indicates a pain score of 0/10. MEDICAL/SURGICAL HISTORY: Anemia. Seizures. None. RADIATION DOSE: 56.35 CTDI (mGy) COMPARISON: [facility] [place], CT BRAIN W/O CONTRAST, 12/01/2017. . TECHNIQUE: CT of the head without contrast. Using automated exposure control and adjustment of the mA and/or kV according to patient size, radiation dose was kept as low as reasonably achievable to ob tain optimal diagnostic quality images. FINDINGS: Cerebrum: The ventricles are normal for age. No evidence of midline shift, mass lesion, hemorrhage or acute infarction. No extraaxial fluid collections are seen. Posterior Fossa: The cerebellum and brainstem are intact. The 4th ventricle is midline. The cerebe llopontine angle is unremarkable. Extracranial: The visualized portion of the orbits is intact. Skull: The calvaria is intact. No evidence of skull fracture. CONCLUSION: 1. Negative for acute process Electronically signed by: Jann Stuart MD 01/20/2018 8:55 PM EDT
--- NOTE | 2018-01-20 20:58 | RADRPT ---
EXAM DATE: 01/20/2018 8:39 PM EDT AGE/SEX: 33 years / Female INDICATIONS: Fall. Right pelvic pain. CLINICAL DATA: This is the patient's initial encounter. Patient reports that signs and symptoms have been present for 1 day and indicates a pain score of 6/10. MEDICAL/SURGICAL HISTORY: None. None. COMPARISON: No prior [place] exams available for comparison. FINDINGS: Examination of the pelvis demonstrates no evidence of fracture or dislocation. Bony mineralization i s normal. There is no widening of the sacroiliac joints. No foreign body is identified. CONCLUSION: Negative for an acute process Electronically signed by: Jann Stuart MD 01/20/2018 8:57 PM EDT
[2018-01-20 21:00] LABS: ACETAMINOPHEN LESS THAN 2.0 MCG/ML (10.0-30.0)
--- NOTE | 2018-01-20 21:03 | RADRPT ---
EXAM DATE: 01/20/2018 8:53 PM EDT AGE/SEX: 33 years / Female INDICATIONS: Neck pain post seizure. CLINICAL DATA: This is the patient's initial encounter. Patient reports that signs and symptoms have been present for 1 day and indicates a pain score of 7/10. MEDICAL/SURGICAL HISTORY: Anemia. Seizures. None. RADIATION DOSE: 14.97 CTDI (mGy) COMPARISON: [facility] – [place], CT CERVICAL SPINE W/O CONTRAST, 03/01/2015. . TECHNIQUE: Contiguous axial images were obtained using helical multirow detector technique. The vol umetric data was post-processed with multiplanar reconstruction in oblique axial, sagittal, and coron al planes. Using automated exposure control and adjustment of the mA and/or kV according to patient s ize, radiation dose was kept as low as reasonably achievable to obtain optimal diagnostic quality gisel ges. FINDINGS: Vertebrae: Normal vertebral body height. No acute bony fractures are demonstrated. There are some mi ld degenerative changes at C5-6 and C6-7. The degenerative changes are mildly increased compared to t he prior examination. Alignment: Normal. No subluxation. C2-3: The bony spinal canal is normal in size. No evidence of disc bulge or herniation. The neural foramina are bilaterally patent. C3-4: The bony spinal canal is normal in size. No evidence of disc bulge or herniation. The neural foramina are bilaterally patent. C4-5: The bony spinal canal is normal in size. No evidence of disc bulge or herniation. The neural foramina are bilaterally patent. C5-6: Mild broad-based bulging with disc osteophyte complex. Mild narrowing of the neural foramina. C6-7: Mild broad-based bulging. The neural foramina are patent bilaterally. C7-T1: The bony spinal canal is normal in size. No evidence of disc bulge or herniation. The neura l foramina are bilaterally patent. CONCLUSION: 1. No acute bony fracture. 2. Mild primary degenerative changes at C5-6 and C6-7. 3. Mild broad-based bulging with disc osteophyte complex at C5-6. 4. Mild broad-based bulging at C6-7. Electronically signed by: Luis Le MD 01/20/2018 9:01 PM EDT
[2018-01-20] MEDS ORDERED: ACETAMINOPHEN 325 MG TAB PO ONE (22:00)
== END 2018-01-20 23:09 | disposition home or self-care (01) ==
LOC: NEPE 19:26
DX: G40.909 Epilepsy, unspecified, not intractable, without status epilepticus (principal); F15.90 Other stimulant use, unspecified, uncomplicated; M25.511 Pain in right shoulder
CPT/HCPCS: 70450; 71045; 72072; 72100; 72125; 72170; 73030; 80048; 80307; 84703; 85025; 96361; 96365; 99285; J1953; J7030